=== PATIENT | male | born 1940 | race Caucasian/White ===

== ENCOUNTER 2018-12-28 14:13 | Inpatient (IN) | payer OTHER ==
--- NOTE | 2018-12-28 14:43 | PDOC ---
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 Per ME report, patient "choked" six times in the past month while eating. He is on a pureed diet with allowances for a mechanical soft diet. ME also notes he has had cognitive decline but that he is at his baseline orientation in that he cannot state the month or year, but otherwise knows his name and age and the place. Patient does not have any acute complaints. PCP: Dr. Patel Code: DNI, MOLST form specifies patient's refusal for a feeding team. NOT DNR Past History - Past Medical History Allergies/Adverse Reactions: Allergies Allergy/AdvReac Type Severity Reaction Status Date / Time No Known Allergies Allergy Verified 12/28/18 14:43 Home Medications: Ambulatory Orders Aripiprazole [Abilify] 2.5 mg PO BID 12/28/18 Ascorbic Acid [Vitamin C] 500 mg PO BID 12/28/18 Baclofen 10 mg PO TID 12/28/18 Clopidogrel Bisulfate [Plavix] 75 mg PO DAILY 12/28/18 Cyanocobalamin [Vitamin B12 -] 1,000 mcg PO DAILY 12/28/18 Docusate Sodium [Colace] 200 mg PO BID 12/28/18 Duloxetine HCl [Cymbalta -] 60 mg PO BID 12/28/18 Escitalopram Oxalate [Lexapro -] 20 mg PO DAILY 12/28/18 Gabapentin [Neurontin -] 800 mg PO Q8H 12/28/18 Gabapentin [Neurontin] 100 mg PO TID 12/28/18 Lisinopril [Zestril] 5 mg PO DAILY 12/28/18 Loratadine 10 mg PO DAILY 12/28/18 Methimazole [Tapazole -] 5 mg PO TID 12/28/18 Multivitamins [Tab-A-Vit -] 1 tab PO DAILY 12/28/18 Simvastatin [Zocor -] 20 mg PO HS 12/28/18 Travoprost [Travatan Z] 5 ml OU HS 12/28/18 Review of Systems - Review of Systems Able to Perform ROS?: No (not oriented) *Physical Exam - Physical Exam Comments: General: Awake, alert, and oriented x 2 (able to state name, age, place, but not month/year), in no acute distress Head: No signs of trauma Eyes: EOMI, sclera anicteric ENT: Dry mucus membranes Neck: Normal ROM, supple Lungs: Crackles appreciated at left lung base, Normal breath sounds Cardio: Regular rhythm, S1 and S2 present Abdomen: Soft, nontender. No guarding, no rebound, no masses Extremities: Normal range of motion, Distal pulses present SKIN: Warm, Dry, normal turgor Neurologic: Cranial nerves II through XII grossly intact. LUE weakness noted. Following commands. 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 Per ME report, patient "choked" six times in the past month while eating. He is on a pureed diet with allowances for a mechanical soft diet. ME also notes he has had cognitive decline but that he is at his baseline orientation in that he cannot state the month or year, but otherwise knows his name and age and the place. Patient does not have any acute complaints. PCP: Dr. Patel Code: DNI, MOLST form specifies patient's refusal for a feeding team. NOT DNR 12/28/18 15:00 Healthcare proxy: Jayce Lee, brother, can be reached at [phone] 12/28/18 15:37 Speech/swallow consult placed 12/28/18 15:37 CBC WBC 6.9 K/mm3 (4.0-10.0) 12/28/18 15:21 RBC 4.52 M/mm3 (4.00-5.60) 12/28/18 15:21 Hgb 13.8 GM/dL (11.7-16.9) 12/28/18 15:21 Hct 42.4 % (35.4-49) 12/28/18 15:21 MCV 93.9 fl (80-96) 12/28/18 15:21 MCH 30.4 pg (25.7-33.7) 12/28/18 15:21 MCHC 32.4 g/dl (32.0-35.9) 12/28/18 15:21 RDW 13.4 % (11.9-15.9) 12/28/18 15:21 Plt Count 173 K/MM3 (134-434) 12/28/18 15:21 MPV 8.3 fl (7.5-11.1) 12/28/18 15:21 Absolute Neuts (auto) 5.3 K/mm3 (1.5-8.0) 12/28/18 15:21 Neutrophils % 76.6 % (42.8-82.8) 12/28/18 15:21 Lymphocytes % 10.1 % (8-40) 12/28/18 15:21 Monocytes % 6.1 % (3.8-10.2) 12/28/18 15:21 Eosinophils % 6.7 % (0-4.5) H 12/28/18 15:21 Basophils % 0.5 % (0-2.0) 12/28/18 15:21 Nucleated RBC % 0 % (0-0) 12/28/18 15:21 No anemia or leukocytosis CMP Sodium 143 mmol/L (136-145) 12/28/18 15:21 Potassium 3.9 mmol/L (3.5-5.1) 12/28/18 15:21 Chloride 108 mmol/L (98-107) H 12/28/18 15:21 Carbon Dioxide 31 mmol/L (21-32) 12/28/18 15:21 Anion Gap 3 MMOL/L (8-16) L 12/28/18 15:21 BUN 19 mg/dL (7-18) H 12/28/18 15:21 Creatinine 0.9 mg/dL (0.55-1.3) 12/28/18 15:21 Est GFR (CKD-EPI)AfAm 93.82 12/28/18 15:21 Est GFR (CKD-EPI)NonAf 80.95 12/28/18 15:21 Random Glucose 107 mg/dL (74-106) H 12/28/18 15:21 Calcium 8.3 mg/dL (8.5-10.1) L 12/28/18 15:21 Total Bilirubin 0.5 mg/dL (0.2-1) 12/28/18 15:21 AST 15 U/L (15-37) 12/28/18 15:21 ALT 12 U/L (13-61) L 12/28/18 15:21 Alkaline Phosphatase 88 U/L (45-117) 12/28/18 15:21 Total Protein 5.6 g/dl (6.4-8.2) L 12/28/18 15:21 Albumin 3.0 g/dl (3.4-5.0) L 12/28/18 15:21 TSH 12.30 uIU/ml (0.358-3.74) H 12/28/18 15:21 Electrolytes unremarkable EKG: rate 84, QTc 505, NSR, nonspecific intraventricaular block CT head: "No CT evidence of acute intracranial pathology. Moderate periventricular and subcortical chronic microvascular ischemic changes are seen. Apparent incidental note is made of a 5 x 4.4 x 2 cm right frontal convexity arachnoid cyst. " CXR: "There are no prior studies for comparison. There is a weak inspiration with some minimal atelectatic change at the left base, unfolded aorta, normal brigid and normal heart. There is no sign of infiltrate or failure. The angles are sharp and the soft tissues are intact. Significant arthritic changes are not seen. Correlation recommended. " Discussed case with Jessica Newman, BUILDING TRADES TEACHER, who is aware of the patient. Recommended keeping him NPO until modified barium swallow. Order placed. 12/28/18 18:[address] Patel who accepted patient for med/surg observation under herself. 12/28/18 19:15 *DC/Admit/Observation/Transfer Diagnosis at time of Disposition: Dysphagia Qualifiers: Dysphagia type: unspecified Qualified Code(s): R13.10 - Dysphagia, unspecified - Discharge Dispostion Condition at time of disposition: Guarded Decision to Admit order: Yes - Referrals - Patient Instructions - Post Discharge Activity
[2018-12-28] MEDS ORDERED: SODIUM CHLORIDE 1,000 ML IV STA (15:21)
[2018-12-28 16:13] LABS: BASO % 0.5 % (0-2.0); EOS % 6.7 % (0-4.5); HEMATOCRIT 42.4 % (35.4-49); HEMOGLOBIN 13.8 GM/dL (11.7-16.9); LYMPH % 10.1 % (8-40); MCH 30.4 pg (25.7-33.7); MCHC 32.4 g/dl (32.0-35.9); MEAN CELL VOLUME 93.9 fl (80-96); MEAN PLT VOLUME 8.3 fl (7.5-11.1); MONO % 6.1 % (3.8-10.2); NEUT % 76.6 % (42.8-82.8); PLATELET COUNT 173 K/MM3 (134-434); RBC 4.52 M/mm3 (4.00-5.60); RDW 13.4 % (11.9-15.9); WHITE BLOOD COUNT 6.9 K/mm3 (4.0-10.0)
[2018-12-28 16:26] LABS: INR 1.12 (0.83-1.09); PROTHROMBIN TIME (PATIENT) 13.2 SEC (9.7-13.0)
[2018-12-28 16:29] LABS: ACTIVATED PTT 41.4 SECONDS (25.2-36.5)
[2018-12-28 16:48] LABS: BILIRUBIN,TOTAL 0.5 mg/dL (0.2-1); CALCIUM 8.3 mg/dL (8.5-10.1); CREATININE 0.9 mg/dL (0.55-1.3); POTASSIUM 3.9 mmol/L (3.5-5.1); TOT PROT 5.6 g/dl (6.4-8.2)
[2018-12-28] MEDS ORDERED: GABAPENTIN 100 MG CAPSULE (FP) PO SCH (23:30)
--- NOTE | 2018-12-28 23:52 | HP ---
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 Per [place] report, patient "choked" six times in the past month while eating. He is on a pureed diet with allowances for a mechanical soft diet. OK also notes he has had cognitive decline but that he is at his baseline orientation in that he cannot state the month or year, but otherwise knows his name and age and the place. 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: Yes: CVA, Dementia, Parkinson's Cardiovascular: Yes: HTN Psych: Yes: Depression - Advance Directives Advance Directives: Yes: Living Will - Smoking History Smoking history: Unknown if ever smoked - Alcohol/Substance Use Hx Alcohol Use: Yes History of Substance Use: reports: None - Social History Usual Living Arrangement: Yes: [facility] ADL: Support Services History of Recent Travel: No Home Medications - Allergies Allergies/Adverse Reactions: Allergies Allergy/AdvReac Type Severity Reaction Status Date / Time No Known Allergies Allergy Verified 12/28/18 14:43 - Home Medications Home Medications: Ambulatory Orders Aripiprazole [Abilify] 2.5 mg PO BID 12/28/18 Ascorbic Acid [Vitamin C] 500 mg PO BID 12/28/18 Baclofen 10 mg PO TID 12/28/18 Clopidogrel Bisulfate [Plavix] 75 mg PO DAILY 12/28/18 Cyanocobalamin [Vitamin B12 -] 1,000 mcg PO DAILY 12/28/18 Docusate Sodium [Colace] 200 mg PO BID 12/28/18 Duloxetine HCl [Cymbalta -] 60 mg PO BID 12/28/18 Escitalopram Oxalate [Lexapro -] 20 mg PO DAILY 12/28/18 Gabapentin [Neurontin -] 800 mg PO Q8H 12/28/18 Gabapentin [Neurontin] 100 mg PO TID 12/28/18 Lisinopril [Zestril] 5 mg PO DAILY 12/28/18 Loratadine 10 mg PO DAILY 12/28/18 Methimazole [Tapazole -] 5 mg PO TID 12/28/18 Multivitamins [Tab-A-Vit -] 1 tab PO DAILY 12/28/18 Simvastatin [Zocor -] 20 mg PO HS 12/28/18 Travoprost [Travatan Z] 5 ml OU HS 12/28/18 Review of Systems Unable to obtain ROS, reason: Dementia Findings/Remarks: hx obtained from nursing staff at [facility] - Review of Systems Constitutional: reports: No Symptoms Eyes: reports: No Symptoms HENT: reports: No Symptoms Neck: reports: No Symptoms Cardiovascular: reports: No Symptoms Respiratory: reports: No Symptoms Gastrointestinal: reports: No Symptoms Genitourinary: reports: No Symptoms Breasts: reports: No Symptoms Reported Musculoskeletal: reports: No Symptoms Integumentary: reports: No Symptoms Neurological: reports: No Symptoms Hematology/Lymphatic: reports: No Symptoms Psychiatric: reports: Depression Physical Examination Vital Signs: Vital Signs Temperature 99.0 F 12/28/18 19:58 Pulse Rate 102 H 12/28/18 19:58 Respiratory Rate 18 12/28/18 19:58 Blood Pressure 121/70 12/28/18 19:58 O2 Sat by Pulse Oximetry (%) 97 12/28/18 19:58 Labs: CBC, BMP 12/28/18 15:21 12/28/18 15:21 Problem List - Problems (1) Dysphagia Code(s): R13.10 - DYSPHAGIA, UNSPECIFIED Qualifiers: Dysphagia type: unspecified Qualified Code(s): R13.10 - Dysphagia, unspecified (2) Dementia Code(s): F03.90 - UNSPECIFIED DEMENTIA WITHOUT BEHAVIORAL DISTURBANCE (3) HTN (hypertension) Code(s): I10 - ESSENTIAL (PRIMARY) HYPERTENSION (4) CVA, old, alterations of sensations Code(s): I69.398 - OTHER SEQUELAE OF CEREBRAL INFARCTION; R20.9 - UNSPECIFIED DISTURBANCES OF SKIN SENSATION
[2018-12-29] MEDS ORDERED: GABAPENTIN 400 MG CAPSULE (FP) PO SCH (00:22)
[2018-12-29] MEDS ORDERED: DEXTROSE 5%-0.45% SALINE 1,000 ML IV SCH (00:30)
[2018-12-29] MEDS ORDERED: ACETAMINOPHEN 1000 MG/100 ML VIAL (NON FORMULARY) IVPB ONE (02:00)
[2018-12-29] MEDS ORDERED: SODIUM CHLORIDE 1,000 ML IV STA ×2 (05:49→06:55)
[2018-12-29] MEDS ORDERED: BACLOFEN 10 MG TABLET (FP) PO SCH (06:00)
[2018-12-29] MEDS ORDERED: METHIMAZOLE 5 MG TABLET (FP) PO SCH (06:00)
[2018-12-29] MEDS ORDERED: PIPERACILLIN/TAZOB 4.5 GM 4.5 GM in DEXTROSE 5%-WATER 100 ML IVPB ONE (06:04)
--- NOTE | 2018-12-29 06:11 | PN ---
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 (short form) - Note 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: LOSS PREVENTION LEAD TEAM NOTE Over the course of the evening pt was noted to be febrile to 101.8F and Blood cultures were drawn at that time and pt subseqeuently noted to be hypotensive to ~ 78/50mmhg though on exam was awake and conversive though disoriented to place & time. I recommended to nurses to stop D5, 1/2NS IVF being given for maintenance hydration and placed order for 1 L bolus of normal saline to be administered over 30mins. I further placed order for IV 1gm Vancomycin & 4.5gm Zosyn to cover for any potential nosocomial infection. Pt given 1gm IV tylenol for antipyretic effect as pt is NPO. AM dose of lisinopril held give hypotension. Pt will need close monitoring of vitals after bolus to see if hemodynamics improve or if additional measures will be needed.
[2018-12-29] MEDS ORDERED: VANCOMYCIN 1 GRAM (PRE-DOCKED) 1,000 MG/250 ML BAG IVPB ONE (06:30)
[2018-12-29] MEDS ORDERED: DEXTROSE 5%-WATER 100 ML IVPB ONE ×2 (06:39→15:57)
[2018-12-29] MEDS ORDERED: PIPERACILLIN/TAZOBACTAM 4.5 GM VIAL IVPB ONE ×2 (06:39→15:57)
[2018-12-29] MEDS ORDERED: DEXTROSE 50%-WATER - 25 GM/50 ML VIAL ONE (06:41)
[2018-12-29 07:59] LABS: CREATININE 0.7 mg/dL (0.55-1.3); HEMATOCRIT 34.8 % (35.4-49); HEMOGLOBIN 11.6 GM/dL (11.7-16.9); MAGNESIUM 2.4 mg/dL (1.8-2.4); MCHC 33.3 g/dl (32.0-35.9); MEAN CELL VOLUME 93.1 fl (80-96); MEAN PLT VOLUME 8.4 fl (7.5-11.1); POTASSIUM 3.5 mmol/L (3.5-5.1); RBC 3.74 M/mm3 (4.00-5.60); WHITE BLOOD COUNT 12.1 K/mm3 (4.0-10.0)
[2018-12-29] MEDS ORDERED: SODIUM CHLORIDE 1,000 ML IV ONE (09:15)
[2018-12-29] MEDS ORDERED: LISINOPRIL 5 MG TABLET (FP) PO SCH (10:00)
[2018-12-29] MEDS ORDERED: LORATADINE 10 MG TABLET PO SCH (10:00)
[2018-12-29] MEDS ORDERED: DULoxetine HCL 30 MG CAPSULE.DR PO SCH (10:00)
[2018-12-29] MEDS ORDERED: MULTIVITAMINS (DAILY MVI) TABLET (FP) PO SCH (10:00)
[2018-12-29] MEDS ORDERED: ASCORBIC ACID 500 MG TABLET (FP) PO SCH (10:00)
[2018-12-29] MEDS ORDERED: ARIPiprazole 5 MG TABLET (FP) PO SCH (10:00)
[2018-12-29] MEDS ORDERED: DOCUSATE SODIUM 100 MG CAPSULE (FP) PO SCH (10:00)
[2018-12-29] MEDS ORDERED: CYANOCOBALAMIN 1,000 MCG TABLET (FP) PO SCH (10:00)
[2018-12-29] MEDS ORDERED: CLOPIDOGREL BISULFATE 75 MG TABLET (FP) PO SCH (10:00)
[2018-12-29] MEDS ORDERED: ESCITALOPRAM OXALATE 20 MG TABLET (FP) PO SCH (10:00)
--- NOTE | 2018-12-29 10:04 | CONSULT ---
Admitting History and Physical - Primary Care Physician PCP: Pamela Patel I - Admission History of Present Illness: 77yo Brother with PMH of HTN, HLD, CVA twenty years ago with residual left- sided weakness, peripheral vascular disease, metabolic encephalopathy presenting from [facility] for evaluation of aspiration. Per verbal report from Speech Pathology at [facility], pt with h/o coughing/ choking episodes. He was downgraded from regular to mechanical soft due to continued difficulty. He was then further downgraded to Puree, allowing some soft mechanical foods. He was not placed on only Puree as he refused and would not accept it. He has lost weight. He has declined any tube feeding per his directives. Yesterday, he was eating a moist mech soft hamburger on a soft bun, and then chocolate pudding. The SW was feeding him the Cristobal pudding, when he started to vomit up food. His O2 sats dropped and his face turned red and he required suctioning. Pt is known to me from MBS performed in 2016, with pharyngeal stasis, no aspiration, penetration, rapid esophageal emptying. Reg diet/thin liquids was rec at that time. He was advised to chew well, swallow hard twice, with alternating solids with liquids. Pt received Dysphagia tx at that time. 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: CVA, Dementia, Parkinson's Cardiovascular: Yes: HTN Psych: Yes: Depression - Advance Directives Advance Directives: Yes: Living Will - Smoking History Smoking history: Unknown if ever smoked - Alcohol/Substance Use Hx Alcohol Use: Yes History of Substance Use: reports: None - Social History ADL: Support Services History of Recent Travel: No History - Admission Reason For Visit: DYSPHAGIA - Diagnostics X-ray: Report Reviewed CT Scan: Report Reviewed - General Mental Status: Awake and Alert, Able to Follow Commands, Forgetful Attention: Intact Ability to Follow Directions: Excellent - Hearing Hearing: Functional Hearing: Impaired (hearing seems depressed) Hearing Aide: No Speech Evaluation - Communication Primary Language: [id number] Communication: Yes: Within Normal Limits Oral Expression Ability: Yes: No Impairment - Speech Production Able to Make Needs Known: Yes: WNL Intelligibility: Yes: WNL - Speech Characteristics Voice Loudness: Normal Voice Pitch: Yes: Normal Voice Phonatory-based Quality: Yes: Normal Speech Pattern: Normal Nasal Resonance: Normal Articulation: Yes: Precise - Language/Auditory Comprehension Follows: Yes: 1 Stage Simple Commands Observation: Able to respond to yes/no queries: Yes, Yes/No Confusion: No, Comprehends Conversational Speech: Yes - Language/Verbal Expression Able to Respond to Simple Queries: Yes: WNL Able to Communicate Wants and Needs: Yes: WNL Functional Communication Status: Yes: WNL - Swallow Evaluation/Bedside Assessment Current Nutritional Intake: NPO Oral Secretions: Yes: WFL Dentition: Yes: Adequate Facial Symmetry at Rest: Symmetrical Facial Symmetry on Retraction: Symmetrical Against Resistance Opening: Normal Against Resistance Closing: Normal Pucker Lips: Normal Smile: Normal Lingual Movement: Normal, Symmetric Lingual Speed of Movement: Normal Lingual Movement Strgth Against Opposition: Normal Lingual Movement Characteristics: Normal Velopharyngeal Movement: Normal Laryngeal Movement: Reduced Excursion Labial Seal: WFL Coughing/Throat Clear: No (sips of thin water given with good tolerance) Recommendations - Speech Evaluation, Impression/Plan Impression: Pt with h/o Dysphagia with pharyngeal stasis, 2016, tolerayted reg diet/thin liquids at that time with compensatory strategies of effortful, repeat swallow, and liquid washdown techniques. Recent choking events at [facility], with vomiting noted after burger and pudding yesterday. r/o pharyngeal stasis/ esophagia dysphagia. - Disposition Discharge to: [facility] - Dysphagia Impressions/Plan Swallowing Skills: Impaired Dysphagia Impressions: Suspect Aspiration *Silent aspiration: cannot be R/O at bedside Recommendations: MBS w Esophagus - Recommendations Medication Administration: Crushed with applesauce
[2018-12-29] MEDS ORDERED: SODIUM CHLORIDE 0.9% 500 ML INFUS.BAG IV ONE (10:40)
--- NOTE | 2018-12-29 11:00 | PN ---
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 (short form) - Note 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: 77 y/o male found sitting in bed. IV bolus finishing due to hypotension. Pt states that he has not had any food since he is here. Pt had a fever last night. Recognizes BULK SAUSAGE CASING TIER OFF and denies pain and discomfort. Vital Signs Period Temp Pulse Resp BP Sys/Ogden Pulse Ox Last 24 Hr 97.7 F-101.8 F 61-110 18-20 74-143/45-81 94-100 CBC, BMP 12/29/18 06:37 12/29/18 06:37 HEENT- NL Neck- Supple Lungs- CTAB Heart- S1/S2 Abd- soft, nt Ext- NO LE edema Active Medications Aripiprazole (Abilify) 2.5 mg PO BID RUFINO Ascorbic Acid (Vitamin C -) 500 mg PO BID RUFINO Baclofen (Lioresal -) 10 mg PO TID [facility] Last Admin: 12/29/18 07:11 Dose: Not Given Clopidogrel Bisulfate (Plavix -) 75 mg PO DAILY RUFINO Cyanocobalamin (Vitamin B12 -) 1,000 mcg PO DAILY RUFINO Docusate Sodium (Colace -) 200 mg PO BID RUFINO Duloxetine HCl (Cymbalta -) 60 mg PO BID RUFINO Escitalopram Oxalate (Lexapro -) 20 mg PO DAILY RUFINO Gabapentin (Neurontin -) 400 mg PO TID [facility] Last Admin: 12/29/18 07:11 Dose: Not Given Latanoprost (Xalatan 0.005% Eye Drops -) 1 drop OU HS URFINO Loratadine (Claritin -) 10 mg PO DAILY RUFINO Multivitamins/Minerals/Vitamin C (Tab-A-Vit -) 1 tab PO DAILY RUFINO #Dysphagia NPO MBS today- when BP more than 100/60 Chext xray reviewed and neg for aspiration #Hypotension IV boluses NS BP trending up- 96/57 500 cc NS bolus now Monitor BP BP 74/40 after last bolus Transfer to ICU #CVA Lt sided weakness Problem List - Problems (1) Dysphagia Code(s): R13.10 - DYSPHAGIA, UNSPECIFIED Qualifiers: Dysphagia type: unspecified Qualified Code(s): R13.10 - Dysphagia, unspecified (2) Dementia Code(s): F03.90 - UNSPECIFIED DEMENTIA WITHOUT BEHAVIORAL DISTURBANCE (3) HTN (hypertension) Code(s): I10 - ESSENTIAL (PRIMARY) HYPERTENSION (4) CVA, old, alterations of sensations Code(s): I69.398 - OTHER SEQUELAE OF CEREBRAL INFARCTION; R20.9 - UNSPECIFIED DISTURBANCES OF SKIN SENSATION
[2018-12-29 11:38] LABS: PLATELET COUNT 168 K/MM3 (134-434)
--- NOTE | 2018-12-29 12:37 | EKG ---
Test Reason : Blood Pressure : / mmHG Vent. Rate : 083 BPM Atrial Rate : 083 BPM P-R Int : 196 ms QRS Dur : 126 ms QT Int : 434 ms P-R-T Axes : 046 -13 065 degrees QTc Int : 509 ms NORMAL SINUS RHYTHM NON-SPECIFIC INTRA-VENTRICULAR CONDUCTION BLOCK CANNOT RULE OUT SEPTAL INFARCT , AGE UNDETERMINED ABNORMAL ECG NO PREVIOUS ECGS AVAILABLE Confirmed by ERUM KUMAR MD ([id number]) on 12/29/2018 12:36:26 PM Referred By: Confirmed By:ERUM KUMAR MD
--- NOTE | 2018-12-29 13:41 | PN ---
Teaching Attending Note Name of Resident: Terrence Le ATTENDING PHYSICIAN STATEMENT I saw and evaluated the patient. I reviewed the resident's note and discussed the case with the resident. I agree with the resident's findings and plan as documented. SUBJECTIVE: Patient seen and examined in the ICU. In brief, 77 M, dementia, HTN, HLD, CVA about 20 years ago with a residual left-sided weakness, peripheral vascular disease, and metabolic encephalopathy. Admitted via the ER due to suspected aspiration penumonitis. Initially admitted to the medical floor and subsequently developed refractory hypotension despite 3 L IVF. Patient is awake and alert, but confused. Right IJ CVP inserted under direct US due to need for pressors. Intake & Output 12/26/18 12/27/18 12/28/18 12/29/18 23:59 23:59 23:59 23:59 Intake Total 2100 Balance 2100 Weight 178 lb 14.4 oz Last Vital Signs Temp Pulse Resp BP Pulse Ox 97.8 F 76 20 76/43 L 97 12/29/18 12:30 12/29/18 12:30 12/29/18 12:30 12/29/18 12:30 12/28/18 19:58 Active Medications Chlorhexidine Gluconate (Hibiclens For Decolonization -) 1 applic TP HS RUFINO Norepinephrine Bitartrate 4, (000 mcg/ Dextrose) 500 mls @ 37.5 mls/hr IV TITR RUFINO; Protocol Mupirocin (Bactroban Ointment (For Decolonization) -) 1 applic NS BID RUFINO Stop: 01/03/19 21:59 General: Awake, alert, mildly confused Head: No signs of trauma Eyes:sclera anicteric ENT: Dry mucus membranes Neck: Normal ROM, supple Lungs: Bibasilar rhonchi, Right > Left Cardio: Regular rhythm, S1 and S2 present Abdomen: Soft, nontender. No guarding, no rebound, no masses Extremities: Normal range of motion, Distal pulses present SKIN: Warm, Dry, poor turgor Neurologic: Non-focal Laboratory Results - last 24 hr 12/28/18 12/28/18 12/28/18 15:21 15:21 15:21 WBC 6.9 RBC 4.52 Hgb 13.8 Hct 42.4 MCV 93.9 MCH 30.4 MCHC 32.4 RDW 13.4 Plt Count 173 MPV 8.3 Absolute Neuts (auto) 5.3 Neutrophils % 76.6 Lymphocytes % 10.1 Monocytes % 6.1 Eosinophils % 6.7 H Basophils % 0.5 Nucleated RBC % 0 PT with INR 13.20 H INR 1.12 H PTT (Actin FS) 41.4 H Sodium 143 Potassium 3.9 Chloride 108 H Carbon Dioxide 31 Anion Gap 3 L BUN 19 H Creatinine 0.9 Est GFR (CKD-EPI)AfAm 93.82 Est GFR (CKD-EPI)NonAf 80.95 Random Glucose 107 H Lactic Acid Calcium 8.3 L Magnesium Total Bilirubin 0.5 AST 15 ALT 12 L Alkaline Phosphatase 88 Total Protein 5.6 L Albumin 3.0 L TSH 12.30 H 12/29/18 12/29/18 12/29/18 06:37 06:37 11:20 WBC 12.1 H RBC 3.74 L Hgb 11.6 L Hct 34.8 L D MCV 93.1 MCH 31.0 MCHC 33.3 RDW 13.0 Plt Count 168 MPV 8.4 Absolute Neuts (auto) Neutrophils % Lymphocytes % Monocytes % Eosinophils % Basophils % Nucleated RBC % PT with INR INR PTT (Actin FS) Sodium 143 Potassium 3.5 Chloride 110 H Carbon Dioxide 28 Anion Gap 6 L BUN 15 Creatinine 0.7 Est GFR (CKD-EPI)AfAm 104.03 Est GFR (CKD-EPI)NonAf 89.76 Random Glucose 90 Lactic Acid 1.0 Calcium 8.0 L Magnesium 2.4 Total Bilirubin AST ALT Alkaline Phosphatase Total Protein Albumin TSH Problem List - Problems (1) Dysphagia Code(s): R13.10 - DYSPHAGIA, UNSPECIFIED Qualifiers: Dysphagia type: unspecified Qualified Code(s): R13.10 - Dysphagia, unspecified (2) Dementia Code(s): F03.90 - UNSPECIFIED DEMENTIA WITHOUT BEHAVIORAL DISTURBANCE (3) HTN (hypertension) Code(s): I10 - ESSENTIAL (PRIMARY) HYPERTENSION (4) CVA, old, alterations of sensations Code(s): I69.398 - OTHER SEQUELAE OF CEREBRAL INFARCTION; R20.9 - UNSPECIFIED DISTURBANCES OF SKIN SENSATION IMP: Sepsis likely due to Aspiration Pneumonitis Progressing to Septic Shock TLC was inserted NE to maintain MAP > 65 Follow CVP to guide fluid resuscitation Strict I & O Follow cultures Aspiration precautions May need NGT O2 as needed to maintain saturation Requires ICU monitoring for shock Dr Anderson Critical care time spent in reviewing chart, evaluating patient and formulating plan - 36 minutes.
[2018-12-29] MEDS ORDERED: NOREPINEPHRINE BITARTRATE 4,000 MCG in DEXTROSE 5%-WATER - 496 ML IV SCH (13:45)
--- NOTE | 2018-12-29 14:16 | CON.ID ---
Consult Consult Specialty:: infectious disease Referred by:: dr henderson Reason for Consultation:: septic shock - History of Present Illness Chief Complaint: hypotension History of Present Illness: 77 yo man residing at [facility] with dementia has [facility] change and speech evaluation - he was admitted for evaluation for aspiration yesterday overnight he developed fever to 101.8 and hypotension he was cultured and received vanco/zosyn and IVF BP remained low and he was transferred to ICU no further fevers otherwise feels well alert, not oriented to place but knows he is turning 78 tomorrow! 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 History of Recent Travel: No Home Medications - Allergies Allergies/Adverse Reactions: Allergies Allergy/AdvReac Type Severity Reaction Status Date / Time No Known Allergies Allergy Verified 12/28/18 14:43 - Home Medications Home Medications: Ambulatory Orders Aripiprazole [Abilify] 2.5 mg PO BID 12/28/18 Ascorbic Acid [Vitamin C] 500 mg PO BID 12/28/18 Baclofen 10 mg PO TID 12/28/18 Clopidogrel Bisulfate [Plavix] 75 mg PO DAILY 12/28/18 Cyanocobalamin [Vitamin B12 -] 1,000 mcg PO DAILY 12/28/18 Docusate Sodium [Colace] 200 mg PO BID 12/28/18 Duloxetine HCl [Cymbalta -] 60 mg PO BID 12/28/18 Escitalopram Oxalate [Lexapro -] 20 mg PO DAILY 12/28/18 Gabapentin [Neurontin -] 800 mg PO Q8H 12/28/18 Gabapentin [Neurontin] 100 mg PO TID 12/28/18 Lisinopril [Zestril] 5 mg PO DAILY 12/28/18 Loratadine 10 mg PO DAILY 12/28/18 Methimazole [Tapazole -] 5 mg PO TID 12/28/18 Multivitamins [Tab-A-Vit -] 1 tab PO DAILY 12/28/18 Simvastatin [Zocor -] 20 mg PO HS 12/28/18 Travoprost [Travatan Z] 5 ml OU HS 12/28/18 Family Disease History - Family Disease History Family History: Unable to Obtain Review of Systems - Review of Systems Constitutional: reports: No Symptoms Eyes: reports: No Symptoms Cardiovascular: denies: Chest Pain Gastrointestinal: denies: Abdominal Pain Genitourinary: denies: Dysuria, Flank Pain Physical Exam Vital Signs: Vital Signs Temperature 97.8 F 12/29/18 12:30 Pulse Rate 76 12/29/18 12:30 Respiratory Rate 20 12/29/18 12:30 Blood Pressure 76/43 L 12/29/18 12:30 O2 Sat by Pulse Oximetry (%) 97 12/28/18 19:58 Constitutional: Yes: Well Nourished, No Distress, Calm Eyes: Yes: Conjunctiva Clear HENT: Yes: Atraumatic, Normocephalic Neck: Yes: Supple, Trachea Midline Cardiovascular: Yes: Regular Rate and Rhythm Respiratory: Yes: Regular, CTA Bilaterally Gastrointestinal: Yes: Normal Bowel Sounds, Soft ...Rectal Exam: Yes: Deferred Musculoskeletal: Yes: WNL Extremities: Yes: WNL Edema: No Neurological: Yes: Alert Labs: CBC, BMP 12/29/18 06:37 12/29/18 06:37 Imaging - Results Chest X-ray: Report Reviewed, Image Reviewed (RLL infiltrate (new)) Problem List - Problems (1) Sepsis Code(s): A41.9 - SEPSIS, UNSPECIFIED ORGANISM (2) Aspiration pneumonia Code(s): J69.0 - PNEUMONITIS DUE TO INHALATION OF FOOD AND VOMIT (3) Dementia Code(s): F03.90 - UNSPECIFIED DEMENTIA WITHOUT BEHAVIORAL DISTURBANCE (4) Dysphagia Code(s): R13.10 - DYSPHAGIA, UNSPECIFIED Qualifiers: Dysphagia type: unspecified Qualified Code(s): R13.10 - Dysphagia, unspecified Assessment/Plan hypotension that has not responded to IVF probable sepsis continue zosyn for possible aspiration cultures pending check UA and urine culture as well
[2018-12-29] MEDS ORDERED: PIPERACILLIN/TAZOB 4.5 GM 4.5 GM in DEXTROSE 5%-WATER 100 ML IVPB SCH (14:22)
[2018-12-29] MEDS ORDERED: SODIUM CHLORIDE 1,000 ML IV SCH (16:00)
[2018-12-29] MEDS: PIPERACILLIN/TAZOB 4.5 GM 4.5 GM in DEXTROSE 5%-WATER 100 ML IVPB SCH (16:00)
--- NOTE | 2018-12-29 16:29 | PROC ---
Central Line Insertion Indication: Vasopressor Risks and Benefits Explained: Yes Consent on Chart: No (No capacity, done emergently ) Central Line: Triple Lumen Catheter Anesthesia: 1% Lidocaine Sterile Technique: Yes Ultrasound Guided Assistance: Yes Position: Right Internal Jugular Post Insertion: Yes: Chest X-Ray Ordered Sterile Dressing Applied: Yes
--- NOTE | 2018-12-29 16:30 | CONSULT ---
Consultation: REQUESTING PROVIDER: CONSULT REQUEST: We have been asked to medically evaluate this patient for ( specify). HISTORY OF PRESENT ILLNESS: 77 yo male pmh dementia, HTN, HLD, CVA with left sided residual weakness, PVD and metabolic encephalopathy BIBA from [facility] and admitted to the floor for likely aspiration PNA. ICU consulted for refractory hypertension in the 70s after 3-4L NS. BP noted to be low since 7AM. Pt is AOX2, NAD, no current complaints of pain, CP, SOB, DRAPER, F/C/N/V, trauma. CT head: "No CT evidence of acute intracranial pathology. Moderate periventricular and subcortical chronic microvascular ischemic changes are seen. Apparent incidental note is made of a 5 x 4.4 x 2 cm right frontal convexity arachnoid cyst. " CXR: "There are no prior studies for comparison. There is a weak inspiration with some minimal atelectatic change at the left base, unfolded aorta, normal brigid and normal heart. There is no sign of infiltrate or failure. The angles are sharp and the soft tissues are intact. Significant arthritic changes are not seen. Correlation recommended. " REVIEW OF SYSTEMS: limited due to dementia PHYSICAL EXAMINATION Vital Signs - 24 hr 12/28/18 12/28/18 12/28/18 16:40 19:16 19:58 Temperature 98.9 F 99.0 F Pulse Rate 83 109 H Pulse Rate [ 102 H Left Radial] Respiratory 20 18 Rate Blood Pressure 143/81 Blood Pressure 121/70 [Left Arm] O2 Sat by Pulse 100 97 Oximetry (%) 12/29/18 12/29/18 12/29/18 01:30 07:00 07:45 Temperature 101.8 F H 98.9 F 97.7 F Pulse Rate 110 H 73 67 Pulse Rate [ Left Radial] Respiratory 20 20 18 Rate Blood Pressure 93/69 79/48 L 87/48 L Blood Pressure [Left Arm] O2 Sat by Pulse Oximetry (%) 12/29/18 12/29/18 12/29/18 08:20 09:10 09:56 Temperature 97.7 F 97.7 F 97.7 F Pulse Rate 61 66 74 Pulse Rate [ Left Radial] Respiratory 20 20 20 Rate Blood Pressure 74/45 L 88/53 L 96/55 L Blood Pressure [Left Arm] O2 Sat by Pulse Oximetry (%) 0612/29/18 12/29/18 10:00 11:50 12:30 Temperature 97.9 F 97.8 F Pulse Rate 75 76 Pulse Rate [ Left Radial] Respiratory 20 20 Rate Blood Pressure 74/41 L 76/43 L Blood Pressure [Left Arm] O2 Sat by Pulse 99 Oximetry (%) GENERAL: Awake, alert, AOX2, in no acute distress. HEAD: Normal with no signs of trauma. EYES: Pupils equal, round and reactive to light, extraocular movements intact, sclera anicteric, conjunctiva clear. No lid lag. EARS, NOSE, THROAT: Ears normal, nares patent, oropharynx clear without exudates. Moist mucous membranes. NECK: Normal range of motion, supple without lymphadenopathy, JVD, or masses. LUNGS: Breath sounds equal, rales bilateral lung bases. No accessory muscle use. HEART: Regular rate and rhythm, normal S1 and S2 without murmur, rub or gallop. ABDOMEN: Soft, nontender, not distended, normoactive bowel sounds, no guarding, no rebound, no masses. No hepatomegaly or splenomegaly. MUSCULOSKELETAL:Left upper ext 2/5 strength, left lower ext 1/5 strength. 5/5 strength R upper and lower ext. No bony deformities or tenderness. No CVA tenderness. UPPER EXTREMITIES: 2+ pulses, warm, well-perfused. No cyanosis. No clubbing. Cap refill <2 seconds. No peripheral edema. LOWER EXTREMITIES: 2+ pulses, warm, well-perfused. No calf tenderness. No peripheral edema. NEUROLOGICAL: Cranial nerves II-XII intact. Normal speech. PSYCHIATRIC: Cooperative. Good eye contact. Appropriate mood and affect. SKIN: Warm, dry, normal turgor, no rashes or lesions noted. Laboratory Results - last 24 hr 12/28/18 12/29/18 12/29/18 15:21 06:37 06:37 WBC 12.1 H RBC 3.74 L Hgb 11.6 L Hct 34.8 L D MCV 93.1 MCH 31.0 MCHC 33.3 RDW 13.0 Plt Count 168 MPV 8.4 Sodium 143 143 Potassium 3.9 3.5 Chloride 108 H 110 H Carbon Dioxide 31 28 Anion Gap 3 L 6 L BUN 19 H 15 Creatinine 0.9 0.7 Est GFR (CKD-EPI)AfAm 93.82 104.03 Est GFR (CKD-EPI)NonAf 80.95 89.76 Random Glucose 107 H 90 Lactic Acid Calcium 8.3 L 8.0 L Magnesium 2.4 Total Bilirubin 0.5 AST 15 ALT 12 L Alkaline Phosphatase 88 Total Protein 5.6 L Albumin 3.0 L TSH 12.30 H 12/29/18 12/29/18 11:20 15:10 WBC RBC Hgb Hct MCV MCH MCHC RDW Plt Count MPV Sodium Potassium Chloride Carbon Dioxide Anion Gap BUN Creatinine Est GFR (CKD-EPI)AfAm Est GFR (CKD-EPI)NonAf Random Glucose Lactic Acid 1.0 0.7 Calcium Magnesium Total Bilirubin AST ALT Alkaline Phosphatase Total Protein Albumin TSH Active Medications Generic Name Dose Route Start Last Admin Trade Name Freq PRN Reason Stop Dose Admin Chlorhexidine Gluconate 1 applic 12/29/18 22:00 Hibiclens For Decolonization - TP HS RUFINO Norepinephrine Bitartrate 4, 500 mls @ 37.5 mls/hr 12/29/18 13:45 000 mcg/ Dextrose IV TITR RUFINO Protocol 5 MCG/MIN Piperacillin Sod/Tazobactam 100 mls @ 200 mls/hr 12/29/18 15:30 12/29/18 16: 00 Sod 4.5 gm/ Dextrose IVPB 200 mls/hr Q8H-IV RUFINO Administration Protocol Sodium Chloride 1,000 mls @ 75 mls/hr 12/29/18 16:00 12/29/18 16:09 Normal Saline - IV 75 mls/hr ASDIR RUFINO Administration Mupirocin 1 applic 12/29/18 22:00 Bactroban Ointment (For Decolonization) - NS 01/03/19 21:59 BID RUFINO ASSESSMENT/PLAN: 77 yo male pmh dementia, HTN, HLD, CVA with left sided residual weakness, PVD and metabolic encephalopathy BIBA from [facility] and admitted to the floor for likely aspiration PNA. ICU consulted for refractory hypertension in the 70s after 3-4L NS. BP noted to be low since 7AM. Pt is AOX2, NAD, no current complaints of pain, CP, SOB, DRAPER, F/C/N/V, trauma. Pt likely septic/ septic shock from possible PNA. WBC trending up, will repeat Right IJ central line placed, confirmed on CXR, see procedure note Levo ordered, maintain MAP > 65 As per ID: probable sepsis continue zosyn for possible aspiration F/C UA/cultures F/U repeat blood work Follow CVP to guide fluid resuscitation Strict I & O Aspiration precautions O2 as needed to maintain saturation above 90% Requires ICU monitoring for shock Dispo: We will continue to follow the patient. Thank you for this consultative opportunity. Visit type - Emergency Visit Emergency Visit: Yes ED Registration Date: 12/28/18 Care time: The patient presented to the Emergency Department on the above date and was hospitalized for further evaluation of their emergent condition. - New Patient This patient is new to me today: Yes Date on this admission: 12/29/18 - Critical Care Critical Care patient: Yes Total Critical Care Time (in minutes): 45 Critical Care Statement: The care of this patient involved high complexity decision making to prevent further life threatening deterioration of the patient 's condition and/or to evaluate & treat vital organ system(s) failure or risk of failure.
--- NOTE | 2018-12-29 18:01 | HOSP ---
Physical Examination Vital Signs: Vital Signs Temperature 97.8 F 12/29/18 12:30 Pulse Rate 76 12/29/18 12:30 Respiratory Rate 20 12/29/18 12:30 Blood Pressure 76/43 L 12/29/18 12:30 O2 Sat by Pulse Oximetry (%) 99 12/29/18 10:00 Labs: CBC, BMP 12/29/18 06:37 12/29/18 06:37 Hospitalist Encounter Assessment: Spoke with Grzegorz Pena, listed as a friend of the patient who called in asking about pt. Mr. Pena stated that pt should be DNR/DNI. However, stated that patient's brother, Jayce Lee is the health care proxy. Unfortunately , Mr. Pena did not have a number for Jayce, but suggested calling [facility]. Called placed to [facility]; spoke to Bella. [facility] did not have pt's brother' s name. Will have to confirm DNR/DNI with health care proxy or next of kin as soon as is possible. Visit type - Emergency Visit Emergency Visit: No - New Patient This patient is new to me today: No - Critical Care Critical Care patient: Yes Total Critical Care Time (in minutes): 35 Critical Care Statement: The care of this patient involved high complexity decision making to prevent further life threatening deterioration of the patient 's condition and/or to evaluate & treat vital organ system(s) failure or risk of failure.
[2018-12-29] MEDS ORDERED: CHLORHEXIDINE GLUCONATE 4% CLEANSER FOR DECOLONIZATION TP SCH (22:00)
[2018-12-29] MEDS ORDERED: LATANOPROST 0.005% OPHTH SOLN 2.5ML BOTTLE OU SCH (22:00)
[2018-12-29] MEDS: MUPIROCIN 2% TOPICAL OINTMENT FOR DECOLONIZATION NS SCH (22:28)
[2018-12-30] MEDS ORDERED: DEXTROSE 5%-WATER 100 ML IVPB ONE ×2 (01:10→17:14)
[2018-12-30] MEDS ORDERED: PIPERACILLIN/TAZOBACTAM 4.5 GM VIAL IVPB ONE ×3 (01:10→17:13)
[2018-12-30] MEDS: PIPERACILLIN/TAZOB 4.5 GM 4.5 GM in DEXTROSE 5%-WATER 100 ML IVPB SCH ×3 (01:11→18:27)
[2018-12-30 06:39] LABS: HEMATOCRIT 35.3 % (35.4-49); MCH 31.1 pg (25.7-33.7); MCHC 33.9 g/dl (32.0-35.9); MEAN CELL VOLUME 91.6 fl (80-96); MEAN PLT VOLUME 8.5 fl (7.5-11.1); RBC 3.85 M/mm3 (4.00-5.60); RDW 13.1 % (11.9-15.9); WHITE BLOOD COUNT 9.3 K/mm3 (4.0-10.0)
[2018-12-30 07:02] LABS: ALBUMIN 2.4 g/dl (3.4-5.0); ALK PHOS 73 U/L (45-117); ANION GAP 8 MMOL/L (8-16); BILIRUBIN,TOTAL 1.1 mg/dL (0.2-1); BLOOD UREA NITROGEN 11.4 mg/dL (7-18); CALCIUM 7.8 mg/dL (8.5-10.1); CHLORIDE 108 mmol/L (98-107); CO2 25 mmol/L (21-32); CREATININE 0.6 mg/dL (0.55-1.3); GLUCOSE,RANDOM 68 mg/dL (74-106); POTASSIUM 3.6 mmol/L (3.5-5.1); SGOT/AST 18 U/L (15-37); SGPT/ALT 11 U/L (13-61); SODIUM 141 mmol/L (136-145); TOT PROT 4.7 g/dl (6.4-8.2)
[2018-12-30] MEDS ORDERED: VANCOMYCIN 1,250 MG in DEXTROSE 5%-WATER - 250 ML IVPB SCH ×2 (08:45→20:45)
[2018-12-30] MEDS ORDERED: DEXTROSE 5%-WATER 200 ML IVPB ONE (09:42)
[2018-12-30 10:07] LABS: PLATELET COUNT 285 K/MM3 (134-434)
--- NOTE | 2018-12-30 10:43 | PN ---
Teaching Attending Note Name of Resident: Terrence Le ATTENDING PHYSICIAN STATEMENT I saw and evaluated the patient. I reviewed the resident's note and discussed the case with the resident. I agree with the resident's findings and plan as documented. SUBJECTIVE: Pt seen and examined in the ICU. Did not require pressors, blood pressure improving. No fevers. 1 set blood cultures growing gram positive cocci in clusters. OBJECTIVE: Vital Signs Period Temp Pulse Resp BP Sys/Ogden Pulse Ox Last 24 Hr 97.8 F-98.7 F 67-90 11-20 74-120/41-78 94-99 Intake & Output 12/27/18 12/28/18 12/29/18 12/30/18 23:59 23:59 23:59 23:59 Intake Total 4300 625 Output Total 600 600 Balance 3700 25 Weight 81.148 kg 80.9 kg Gen: NAD at rest Heart: RRR Lung: decreased breath sounds at the bases Abd: soft, nontender Ext: no edema CBC, BMP 12/30/18 05:42 12/30/18 05:42 Active Medications Chlorhexidine Gluconate (Hibiclens For Decolonization -) 1 applic TP HS RUFINO Last Admin: 12/29/18 22:28 Dose: 1 applic Norepinephrine Bitartrate 4, (000 mcg/ Dextrose) 500 mls @ 37.5 mls/hr IV TITR RUFINO; Protocol Piperacillin Sod/Tazobactam (Sod 4.5 gm/ Dextrose) 100 mls @ 200 mls/hr IVPB Q8H-IV RUFINO; Protocol Last Admin: 12/30/18 10:27 Dose: 200 mls/hr Sodium Chloride (Normal Saline -) 1,000 mls @ 75 mls/hr IV ASDIR RUFINO Last Admin: 12/29/18 16:09 Dose: 75 mls/hr Vancomycin HCl 1,250 mg/ (Dextrose) 250 mls @ 166.667 mls/hr IVPB Q12H RUFINO; Protocol Mupirocin (Bactroban Ointment (For Decolonization) -) 1 applic NS BID RUFINO Stop: 01/03/19 21:59 Last Admin: 12/29/18 22:28 Dose: 1 applic ASSESSMENT AND PLAN: Pneumonia likely Aspiration Sepsis improving HTN Dementia - continue antibiotics - repeat cultures - monitoring off pressors, maintain MAP >65 - aspiration precautions - PO as tolerated - d/c IVF if tolerating PO - DVT prophylaxis - can monitor on floor
[2018-12-30] MEDS ORDERED: ENOXAPARIN NA (PORCINE) 80 MG/0.8 ML DISP.SYRIN SQ SCH (11:15)
[2018-12-30] MEDS ORDERED: ENOXAPARIN NA (PORCINE) 40 MG/0.4 ML DISP.SYRIN SQ SCH (11:30)
[2018-12-30] MEDS ORDERED: VANCOMYCIN 1,250 MG in DEXTROSE 5%-WATER - 250 ML IVPB ONE (11:30)
[2018-12-30] MEDS: MUPIROCIN 2% TOPICAL OINTMENT FOR DECOLONIZATION NS SCH (11:55)
[2018-12-30 16:10] LABS: HYALINE CASTS 25 /lpf (0-8); URINE APPEARANCE CLOUDY; URINE BACTERIA 4.6 /hpf (NEGATIVE); URINE BILIRUBIN NEGATIVE (NEGATIVE); URINE COLOR DK YELLOW; URINE GLUCOSE (UA) NEGATIVE (NEGATIVE); URINE KETONE 3+ (NEGATIVE); URINE LEUK ESTERASE 2+ (NEGATIVE); URINE NITRITE NEGATIVE (NEGATIVE); URINE PROTEIN NEGATIVE (NEGATIVE); URINE RBC 118 /hpf (0-4); URINE WBC 25 /hpf (0-5)
[2018-12-30] MEDS: SODIUM CHLORIDE 1,000 ML IV SCH (18:25)
--- NOTE | 2018-12-30 19:55 | PN ---
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, Physician History of Present Illness: AWAKE BUT CONFUSED OFFERS NO COMPLAINTS AFEBRILE BREATHING NON LABORED` - Current Medication List Current Medications: Active Medications Enoxaparin Sodium (Lovenox -) 40 mg SQ DAILY RUFINO Piperacillin Sod/Tazobactam (Sod 4.5 gm/ Dextrose) 100 mls @ 200 mls/hr IVPB Q8H-IV RUFINO; Protocol Sodium Chloride (Normal Saline -) 1,000 mls @ 75 mls/hr IV ASDIR RUFINO Last Admin: 12/30/18 18:25 Dose: Not Given Vancomycin HCl 1,250 mg/ (Dextrose) 250 mls @ 166.667 mls/hr IVPB Q12H RUFINO; Protocol Piperacillin Sod/Tazobactam (Sod 4.5 gm/ Dextrose) 100 mls @ 200 mls/hr IVPB Q8H-IV RUFINO; Protocol Stop: 12/31/18 10:29 Last Admin: 12/30/18 18:27 Dose: 200 mls/hr Vancomycin HCl 1,250 mg/ (Dextrose) 250 mls @ 166.667 mls/hr IVPB ONCE ONE; Protocol Stop: 12/31/18 01:59 - Objective Vital Signs: Vital Signs Temperature 98.4 F 12/30/18 18:00 Pulse Rate 87 12/30/18 18:00 Respiratory Rate 18 12/30/18 18:00 Blood Pressure 127/77 12/30/18 18:00 O2 Sat by Pulse Oximetry (%) 94 L 12/30/18 09:00 Constitutional: Yes: No Distress Cardiovascular: Yes: Regular Rate and Rhythm, S1, S2 Respiratory: Yes: Diminished Gastrointestinal: Yes: Soft. No: Normal Bowel Sounds Labs: CBC, BMP 12/30/18 05:42 12/30/18 05:42 INR, PTT INR 1.12 (0.83-1.09) H 12/28/18 15:21 Assessment/Plan PROBABLE ASP PNEUMONIA R/O SEPSIS SECONDARY TO PNEUMONIA +BC ?SIGNIFICANCE CONTINUE ZOSYN VANCOMYCIN X 1
[2018-12-30] MEDS ORDERED: CHLORHEXIDINE GLUCONATE 4% CLEANSER FOR DECOLONIZATION TP SCH (22:00)
[2018-12-30] MEDS ORDERED: MUPIROCIN 2% TOPICAL OINTMENT FOR DECOLONIZATION NS SCH (22:00)
[2018-12-31] MEDS ORDERED: VANCOMYCIN 1,250 MG in DEXTROSE 5%-WATER - 250 ML IVPB ONE (00:30)
[2018-12-31] MEDS ORDERED: PT OWN MED DRAWER 7, Y5N ONE (00:35)
[2018-12-31] MEDS: SODIUM CHLORIDE 1,000 ML IV SCH ×2 (00:57→17:55)
--- NOTE | 2018-12-31 01:23 | PN ---
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 (short form) - Note 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: patient seen and examined in ICU unable to provide hx Vital Signs Period Temp Pulse Resp BP Sys/Ogden Pulse Ox Last 24 Hr 97.4 F-98.7 F 70-88 11-20 107-127/59-93 94 confused voices no c/o neck -jvd heart S1/S2 lungs gtossly clear abd soft non tnder CBC, BMP 12/30/18 05:42 12/30/18 05:42 + blood c/s Microbiology 12/28/18 15:21 Blood - Peripheral Venous Blood Culture - Preliminary NO GROWTH OBTAINED AFTER 48 HOURS, INCUBATION TO CONTINUE FOR 3 DAYS. 12/28/18 15:21 Blood - Peripheral Venous Blood Culture - Preliminary NO GROWTH OBTAINED AFTER 48 HOURS, INCUBATION TO CONTINUE FOR 3 DAYS. 12/29/18 02:50 Blood - Peripheral Venous Blood Culture - Preliminary Pending Organism 12/29/18 02:50 Blood - Peripheral Venous Blood Culture - Preliminary NO GROWTH OBTAINED AFTER 24 HOURS, INCUBATION TO CONTINUE FOR 4 DAYS. Active Medications Enoxaparin Sodium (Lovenox -) 40 mg SQ DAILY RUFINO Piperacillin Sod/Tazobactam (Sod 4.5 gm/ Dextrose) 100 mls @ 200 mls/hr IVPB Q8H-IV RUFINO; Protocol Sodium Chloride (Normal Saline -) 1,000 mls @ 75 mls/hr IV ASDIR RUFINO Last Admin: 12/31/18 00:57 Dose: 75 mls/hr Vancomycin HCl 1,250 mg/ (Dextrose) 250 mls @ 166.667 mls/hr IVPB Q12H RUFINO; Protocol Piperacillin Sod/Tazobactam (Sod 4.5 gm/ Dextrose) 100 mls @ 200 mls/hr IVPB Q8H-IV RUFINO; Protocol Stop: 12/31/18 10:29 Last Admin: 12/30/18 18:27 Dose: 200 mls/hr Vancomycin HCl 1,250 mg/ (Dextrose) 250 mls @ 166.667 mls/hr IVPB ONCE ONE; Protocol Stop: 12/31/18 01:59 Last Admin: 12/31/18 00:56 Dose: 166.667 mls/hr #Dysphagia NPO MBS was not done yesterday Patient has remained NPO Chext xray reviewed and neg for aspiration #Hypotension Multiple IV boluses NS > 3 liters with Bp74/40 required transfer to ICU - however BP improved and no pressors required BP trending up- 96/57 #CVA Lt sided weakness Problem List - Problems (1) Dysphagia Code(s): R13.10 - DYSPHAGIA, UNSPECIFIED Qualifiers: Dysphagia type: unspecified Qualified Code(s): R13.10 - Dysphagia, unspecified (2) Dementia Code(s): F03.90 - UNSPECIFIED DEMENTIA WITHOUT BEHAVIORAL DISTURBANCE (3) HTN (hypertension) Code(s): I10 - ESSENTIAL (PRIMARY) HYPERTENSION (4) CVA, old, alterations of sensations Code(s): I69.398 - OTHER SEQUELAE OF CEREBRAL INFARCTION; R20.9 - UNSPECIFIED DISTURBANCES OF SKIN SENSATION
[2018-12-31] MEDS ORDERED: PIPERACILLIN/TAZOBACTAM 4.5 GM VIAL IVPB ONE ×3 (02:49→17:45)
[2018-12-31] MEDS ORDERED: DEXTROSE 5%-WATER 100 ML IVPB ONE ×3 (02:50→17:45)
[2018-12-31] MEDS: PIPERACILLIN/TAZOB 4.5 GM 4.5 GM in DEXTROSE 5%-WATER 100 ML IVPB SCH ×3 (02:51→17:56)
--- NOTE | 2018-12-31 06:56 | PN ---
Physical Exam: SUBJECTIVE: Patient seen and examined at bedside. No events overnight. Pt seated upright in bed, baseline mentation, no complaints at this time OBJECTIVE: Vital Signs Period Temp Pulse Resp BP Sys/Ogden Pulse Ox Last 24 Hr 97.4 F-98.7 F 70-88 12-20 107-127/71-93 94-96 GENERAL: Awake, alert, AOX2, in no acute distress. HEAD: Normal with no signs of trauma. EYES: Pupils equal, round and reactive to light, extraocular movements intact, sclera anicteric, conjunctiva clear. No lid lag. EARS, NOSE, THROAT: Ears normal, nares patent, oropharynx clear without exudates. Moist mucous membranes. NECK: Normal range of motion, supple without lymphadenopathy, JVD, or masses. LUNGS: Breath sounds equal, rales bilateral lung bases. No accessory muscle use. HEART: Regular rate and rhythm, normal S1 and S2 without murmur, rub or gallop. ABDOMEN: Soft, nontender, not distended, normoactive bowel sounds, no guarding, no rebound, no masses. No hepatomegaly or splenomegaly. MUSCULOSKELETAL:Left upper ext 2/5 strength, left lower ext 1/5 strength. 5/5 strength R upper and lower ext. No bony deformities or tenderness. No CVA tenderness. UPPER EXTREMITIES: 2+ pulses, warm, well-perfused. No cyanosis. No clubbing. Cap refill <2 seconds. No peripheral edema. LOWER EXTREMITIES: 2+ pulses, warm, well-perfused. No calf tenderness. No peripheral edema. NEUROLOGICAL: Cranial nerves II-XII intact. Normal speech. PSYCHIATRIC: Cooperative. Good eye contact. Appropriate mood and affect. SKIN: Warm, dry, normal turgor, no rashes or lesions noted. Laboratory Results - last 24 hr 12/30/18 12/30/18 12/30/18 05:42 05:42 15:17 Plt Count 285 D Sodium 141 Potassium 3.6 Chloride 108 H Carbon Dioxide 25 Anion Gap 8 BUN 11.4 Creatinine 0.6 Est GFR (CKD-EPI)AfAm 110.06 Est GFR (CKD-EPI)NonAf 94.96 Random Glucose 68 L Calcium 7.8 L Total Bilirubin 1.1 H AST 18 ALT 11 L Alkaline Phosphatase 73 Troponin I < 0.02 Total Protein 4.7 L Albumin 2.4 L Urine Color Dk yellow Urine Appearance Cloudy Urine pH 5.0 Ur Specific Maunie 1.022 Urine Protein Negative Urine Glucose (UA) Negative Urine Ketones 3+ H Urine Blood 3+ H Urine Nitrite Negative Urine Bilirubin Negative Urine Urobilinogen 2.0 Ur Leukocyte Esterase 2+ H Urine WBC (Auto) 25 Urine RBC (Auto) 118 Urine Casts (Auto) 25 U Epithel Cells (Auto) 3.0 Urine Bacteria (Auto) 4.6 Active Medications Generic Name Dose Route Start Last Admin Trade Name Nikolai PRN Reason Stop Dose Admin Enoxaparin Sodium 40 mg 12/31/18 10:00 Lovenox - SQ DAILY RUFINO Piperacillin Sod/Tazobactam 100 mls @ 200 mls/hr 12/31/18 18:00 Sod 4.5 gm/ Dextrose IVPB Q8H-IV RUFINO Protocol Sodium Chloride 1,000 mls @ 75 mls/hr 12/30/18 16:06 12/31/18 00:57 Normal Saline - IV 75 mls/hr ASDIR RUFINO Administration Vancomycin HCl 1,250 mg/ 250 mls @ 166.667 mls/hr 12/30/18 20:45 Dextrose IVPB Q12H RUFINO Protocol Piperacillin Sod/Tazobactam 100 mls @ 200 mls/hr 12/30/18 18:00 12/31/18 02: 51 Sod 4.5 gm/ Dextrose IVPB 12/31/18 10:29 200 mls/hr Q8H-IV RUFINO Administration Protocol ASSESSMENT/PLAN: 77 yo male pmh dementia, HTN, HLD, CVA with left sided residual weakness, PVD and metabolic encephalopathy BIBA from [facility] and admitted to the floor for likely aspiration PNA. ICU consulted for refractory hypertension in the 70s after 3-4L NS. BP noted to be low since 7AM. Pt is AOX2, NAD, no current complaints of pain, CP, SOB, DRAPER, F/C/N/V, trauma. Pt likely septic/ septic shock from possible PNA. Levo ordered, not required Gram + cocci growth in both aerobic and anerobic bottles Vanc added along with Zosyn F/C UA/cultures F/U repeat blood work Follow CVP to guide fluid resuscitation Strict I & O Aspiration precautions O2 as needed to maintain saturation above 90% Requires ICU monitoring for shock Dispo: We will continue to follow the patient. Thank you for this consultative opportunity. Visit type - Emergency Visit Emergency Visit: No - New Patient This patient is new to me today: No - Critical Care Critical Care patient: Yes Total Critical Care Time (in minutes): 36 Critical Care Statement: The care of this patient involved high complexity decision making to prevent further life threatening deterioration of the patient 's condition and/or to evaluate & treat vital organ system(s) failure or risk of failure.
[2018-12-31] MEDS: ENOXAPARIN NA (PORCINE) 40 MG/0.4 ML DISP.SYRIN SQ SCH (09:25)
--- NOTE | 2018-12-31 11:49 | PN ---
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 (short form) - Note 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: patient seen and examined on medical martinez unable to provide hx has remained NPO states he is hungry Vital Signs Period Temp Pulse Resp BP Sys/Ogden Pulse Ox Last 24 Hr 97.4 F-98.7 F 70-87 12-20 118-127/71-93 96 voices no c/o neck -jvd heart S1/S2 lungs grossly clear abd soft non tender CBC, BMP 12/30/18 05:42 12/30/18 05:42 + blood c/s Microbiology 12/29/18 17:00 Urine - Urine Gibson Urine Culture - Final NO GROWTH OBTAINED 12/29/18 02:50 Blood - Peripheral Venous Blood Culture - Preliminary Staphylococcus Coagulase Neg 12/29/18 02:50 Blood - Peripheral Venous Blood Culture - Preliminary NO GROWTH OBTAINED AFTER 48 HOURS, INCUBATION TO CONTINUE FOR 3 DAYS. 12/28/18 15:21 Blood - Peripheral Venous Blood Culture - Preliminary NO GROWTH OBTAINED AFTER 48 HOURS, INCUBATION TO CONTINUE FOR 3 DAYS. 12/28/18 15:21 Blood - Peripheral Venous Blood Culture - Preliminary NO GROWTH OBTAINED AFTER 48 HOURS, INCUBATION TO CONTINUE FOR 3 DAYS. 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 Per [place] report, patient "choked" six times in the past month while eating. He is on a pureed diet with allowances for a mechanical soft diet. Patient became hypotensive and not responded to IV bolus and was transferred to ICU. DUring ICU stay BP improved and did not require pressors for BP support. He is on medical martinez - clinically stable Discussed with Nursing at [facility] - he will not allow feeding tube, so will try PO cautiously. #Dysphagia NPO MBS no done - will try thicken fluid --if tolerated will progress to puree Chext xray reviewed and neg for aspiration #Hypotension s/p multiple IV boluses NS BP trending up- continue to monitor #CVA Lt sided weakness # Neuropathy / chronic pain LE Problem List - Problems (1) Dysphagia Code(s): R13.10 - DYSPHAGIA, UNSPECIFIED Qualifiers: Dysphagia type: unspecified Qualified Code(s): R13.10 - Dysphagia, unspecified (2) Dementia Code(s): F03.90 - UNSPECIFIED DEMENTIA WITHOUT BEHAVIORAL DISTURBANCE (3) HTN (hypertension) Code(s): I10 - ESSENTIAL (PRIMARY) HYPERTENSION (4) CVA, old, alterations of sensations Code(s): I69.398 - OTHER SEQUELAE OF CEREBRAL INFARCTION; R20.9 - UNSPECIFIED DISTURBANCES OF SKIN SENSATION
--- NOTE | 2018-12-31 13:14 | PN ---
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 (short form) - Note 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: PULMONARY Denies shortness of breath, cough or fevers. Vital Signs Period Temp Pulse Resp BP Sys/Ogden Pulse Ox Last 24 Hr 97.4 F-98.4 F 82-87 17-20 118-127/71-93 96 Gen: NAD at rest Heart: RRR Lung: decreased breath sounds at the bases Abd: soft, nontender Ext: no edema CBC, BMP 12/30/18 05:42 12/30/18 05:42 Active Medications Enoxaparin Sodium (Lovenox -) 40 mg SQ DAILY RUFINO Last Admin: 12/31/18 09:25 Dose: 40 mg Piperacillin Sod/Tazobactam (Sod 4.5 gm/ Dextrose) 100 mls @ 200 mls/hr IVPB Q8H-IV RUFINO; Protocol Sodium Chloride (Normal Saline -) 1,000 mls @ 75 mls/hr IV ASDIR RUFINO Last Admin: 12/31/18 00:57 Dose: 75 mls/hr Vancomycin HCl 1,250 mg/ (Dextrose) 250 mls @ 166.667 mls/hr IVPB Q12H RUFINO; Protocol A/P Pneumonia likely Aspiration Sepsis improving HTN Dementia - continue antibiotics - aspiration precautions - PO as tolerated - can d/c IVF if tolerating PO - DVT prophylaxis
--- NOTE | 2018-12-31 13:54 | PN ---
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, Physician History of Present Illness: TRANSFERRED TO REGULAR FLOOR AWAKE. NO COMPLAINTS AFEBRILE BREATHING NON LABORED` - Current Medication List Current Medications: Active Medications Enoxaparin Sodium (Lovenox -) 40 mg SQ DAILY RUFINO Last Admin: 12/31/18 09:25 Dose: 40 mg Piperacillin Sod/Tazobactam (Sod 4.5 gm/ Dextrose) 100 mls @ 200 mls/hr IVPB Q8H-IV RUFINO; Protocol Sodium Chloride (Normal Saline -) 1,000 mls @ 75 mls/hr IV ASDIR RUFINO Last Admin: 12/31/18 00:57 Dose: 75 mls/hr Vancomycin HCl 1,250 mg/ (Dextrose) 250 mls @ 166.667 mls/hr IVPB Q12H RUFINO; Protocol - Objective Vital Signs: Vital Signs Temperature 97.8 F 12/31/18 10:00 Pulse Rate 82 12/31/18 10:00 Respiratory Rate 20 12/31/18 10:00 Blood Pressure 118/79 12/31/18 10:00 O2 Sat by Pulse Oximetry (%) 96 12/30/18 21:00 Constitutional: Yes: No Distress Cardiovascular: Yes: Regular Rate and Rhythm, S1, S2 Respiratory: Yes: Diminished Gastrointestinal: Yes: Normal Bowel Sounds, Soft. No: Tenderness Edema: No Labs: CBC, BMP 12/30/18 05:42 12/30/18 05:42 INR, PTT INR 1.12 (0.83-1.09) H 12/28/18 15:21 Assessment/Plan PROBABLE ASP PNEUMONIA R/O SEPSIS SECONDARY TO PNEUMONIA +BC LIKELY CONTAMINANT CONTINUE ZOSYN
[2019-01-01] MEDS ORDERED: PIPERACILLIN/TAZOBACTAM 4.5 GM VIAL IVPB ONE ×4 (00:17→23:34)
[2019-01-01] MEDS ORDERED: DEXTROSE 5%-WATER 100 ML IVPB ONE ×4 (00:18→23:34)
[2019-01-01] MEDS: PIPERACILLIN/TAZOB 4.5 GM 4.5 GM in DEXTROSE 5%-WATER 100 ML IVPB SCH ×3 (01:15→17:45)
[2019-01-01 07:14] LABS: BASO % 0.7 % (0-2.0); EOS % 5.4 % (0-4.5); HEMATOCRIT 34.1 % (35.4-49); HEMOGLOBIN 11.9 GM/dL (11.7-16.9); LYMPH % 12.4 % (8-40); MCH 31.3 pg (25.7-33.7); MCHC 34.7 g/dl (32.0-35.9); MEAN CELL VOLUME 90.2 fl (80-96); MEAN PLT VOLUME 8.1 fl (7.5-11.1); MONO % 10.8 % (3.8-10.2); NEUT % 70.7 % (42.8-82.8); PLATELET COUNT 189 K/MM3 (134-434); RBC 3.79 M/mm3 (4.00-5.60); RDW 13.1 % (11.9-15.9); WHITE BLOOD COUNT 6.4 K/mm3 (4.0-10.0)
[2019-01-01 07:34] LABS: BLOOD UREA NITROGEN 7.9 mg/dL (7-18); CALCIUM 7.9 mg/dL (8.5-10.1); CREATININE 0.5 mg/dL (0.55-1.3); POTASSIUM 3.1 mmol/L (3.5-5.1)
--- NOTE | 2019-01-01 09:09 | PN ---
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: Selected Entries 12/28/18 12/28/18 12/28/18 14:40 19:16 19:58 Supper Temperature Blood Pressure 126/79 143/81 Blood Pressure 121/70 [Left Arm] 12/29/18 12/29/18 12/29/18 01:30 07:00 07:45 Supper Temperature Blood Pressure 93/69 79/48 L 87/48 L Blood Pressure [Left Arm] 12/29/18 12/29/18 12/29/18 08:20 09:10 09:56 Supper Temperature Blood Pressure 74/45 L 88/53 L 96/55 L Blood Pressure [Left Arm] 12/29/18 12/29/18 12/29/18 11:50 12:30 13:00 Supper Temperature Blood Pressure 74/41 L 76/43 L 77/48 L Blood Pressure [Left Arm] 12/29/18 12/29/18 12/29/18 14:00 16:00 18:00 Supper Temperature Blood Pressure 108/59 L 113/67 120/67 Blood Pressure [Left Arm] 12/29/18 12/29/18 12/30/18 20:01 22:00 00:00 Supper Temperature Blood Pressure 119/75 117/55 L 112/69 Blood Pressure [Left Arm] 12/30/18 12/30/18 12/30/18 02:00 04:00 06:00 Supper Temperature Blood Pressure 112/65 108/59 L 110/76 Blood Pressure [Left Arm] 12/30/18 12/30/18 12/30/18 08:00 10:00 12:00 Supper Temperature Blood Pressure 107/78 124/79 122/76 Blood Pressure [Left Arm] 12/30/18 12/30/18 12/30/18 14:00 18:00 23:15 Supper Temperature Blood Pressure 121/93 127/77 125/76 Blood Pressure [Left Arm] 12/31/18 12/31/18 12/31/18 01:07 06:03 10:00 Supper Temperature 97.4 F L 98.3 F 97.8 F Blood Pressure 123/72 126/71 118/79 Blood Pressure [Left Arm] 12/31/18 12/31/18 12/31/18 14:24 19:12 19:16 Supper NPO Temperature 97.8 F 98.3 F Blood Pressure 113/76 130/65 Blood Pressure [Left Arm] 12/31/18 01/01/19 01/01/19 21:34 01:28 05:53 Supper Temperature 98.4 F 98.0 F 98.2 F Blood Pressure 99/58 L 115/63 111/70 Blood Pressure [Left Arm] Laboratory Tests 12/29/18 12/30/18 01/01/19 06:37 05:42 06:04 WBC 12.1 H 9.3 6.4 Pt now on 7w. Last week, patient became hypotensive and not responded to IV bolus and was transferred to ICU. MBS was deferred per medical team due to low BP. During ICU stay BP improved and did not require pressors for BP support. Per ID-PROBABLE ASP PNEUMONIA R/O SEPSIS SECONDARY TO PNEUMONIA Pt has been kept NPO. Pending MBS today.
[2019-01-01] MEDS: ENOXAPARIN NA (PORCINE) 40 MG/0.4 ML DISP.SYRIN SQ SCH (10:50)
[2019-01-01] MEDS: SODIUM CHLORIDE 1,000 ML IV SCH ×2 (10:52→17:41)
--- NOTE | 2019-01-01 11:23 | PN ---
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 (short form) - Note 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: Resting in NAD. Awake but confused. No acute events overnight. Intake & Output 12/29/18 12/30/18 12/31/18 01/01/19 23:59 23:59 23:59 23:59 Intake Total 4300 1625 875 925 Output Total 600 1650 2750 500 Balance 0405 -00 -0064 799 Weight 178 lb 5.663 oz Last Vital Signs Temp Pulse Resp BP Pulse Ox 98.2 F 90 20 137/84 96 01/01/19 09:42 01/01/19 09:42 01/01/19 09:42 01/01/19 09:42 12/31/18 21:00 Active Medications Enoxaparin Sodium (Lovenox -) 40 mg SQ DAILY RUFINO Last Admin: 01/01/19 10:50 Dose: 40 mg Piperacillin Sod/Tazobactam (Sod 4.5 gm/ Dextrose) 100 mls @ 200 mls/hr IVPB Q8H-IV RUFINO; Protocol Last Admin: 01/01/19 10:51 Dose: 200 mls/hr Sodium Chloride (Normal Saline -) 1,000 mls @ 75 mls/hr IV ASDIR RUFINO Last Admin: 01/01/19 10:52 Dose: 75 mls/hr Gen: NAD at rest Heart: RRR Lung: decreased breath sounds at the bases Abd: soft, nontender Ext: no edema Laboratory Results - last 24 hr 01/01/19 01/01/19 06:04 06:04 WBC 6.4 RBC 3.79 L Hgb 11.9 Hct 34.1 L MCV 90.2 MCH 31.3 MCHC 34.7 RDW 13.1 Plt Count 189 D MPV 8.1 Absolute Neuts (auto) 4.5 Neutrophils % 70.7 Lymphocytes % 12.4 D Monocytes % 10.8 H Eosinophils % 5.4 H Basophils % 0.7 Nucleated RBC % 0 Sodium 143 Potassium 3.1 L Chloride 108 H Carbon Dioxide 26 Anion Gap 8 BUN 7.9 Creatinine 0.5 L Est GFR (CKD-EPI)AfAm 118.62 Est GFR (CKD-EPI)NonAf 102.35 Random Glucose 71 L Calcium 7.9 L A/P Pneumonia likely Aspiration Sepsis improving HTN Dementia ABX Per ID Aspiration precautions For MBS today VTE prophylaxis Dr Anderson
[2019-01-01] MEDS: KCL 10 MEQ IVPB 10 MEQ/100 ML INFUS.BAG IVPB SCH ×2 (13:14→14:41)
[2019-01-01 14:35] VITALS: BMI 24.1
--- NOTE | 2019-01-01 16:28 | PN ---
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 (short form) - Note 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: comfortable NAD Vital Signs Period Temp Pulse Resp BP Sys/Ogden Pulse Ox Last 24 Hr 98 F-98.4 F 74-93 18-20 99-137/58-84 96-98 cor-rrr lungs decreased bs at bases abd soft,nt ext no edema CBC, BMP 01/01/19 06:04 01/01/19 06:04 Microbiology 12/28/18 15:21 Blood - Peripheral Venous Blood Culture - Preliminary NO GROWTH OBTAINED AFTER 96 HOURS, INCUBATION TO CONTINUE FOR 1 DAYS. 12/28/18 15:21 Blood - Peripheral Venous Blood Culture - Preliminary NO GROWTH OBTAINED AFTER 96 HOURS, INCUBATION TO CONTINUE FOR 1 DAYS. 12/29/18 02:50 Blood - Peripheral Venous Blood Culture - Final Staphylococcus Epidermidis 12/29/18 02:50 Blood - Peripheral Venous Blood Culture - Preliminary NO GROWTH OBTAINED AFTER 72 HOURS, INCUBATION TO CONTINUE FOR 2 DAYS. 12/29/18 17:00 Urine - Urine Gibson Urine Culture - Final NO GROWTH OBTAINED Current Medications Enoxaparin Sodium (Lovenox -) 40 mg SQ DAILY RUFINO Last Admin: 01/01/19 10:50 Dose: 40 mg Piperacillin Sod/Tazobactam (Sod 4.5 gm/ Dextrose) 100 mls @ 200 mls/hr IVPB Q8H-IV RUFINO; Protocol Last Admin: 01/01/19 10:51 Dose: 200 mls/hr Sodium Chloride (Normal Saline -) 1,000 mls @ 75 mls/hr IV ASDIR RUFINO Last Admin: 01/01/19 10:52 Dose: 75 mls/hr a/p probable aspiration pneumonia- day #4 zosyn can switch to augmentin suspension in am if patient is tolerating pos finish 7 days total (another 72 hours) dementia Problem List - Problems (1) Sepsis Code(s): A41.9 - SEPSIS, UNSPECIFIED ORGANISM (2) Aspiration pneumonia Code(s): J69.0 - PNEUMONITIS DUE TO INHALATION OF FOOD AND VOMIT (3) Dementia Code(s): F03.90 - UNSPECIFIED DEMENTIA WITHOUT BEHAVIORAL DISTURBANCE (4) Dysphagia Code(s): R13.10 - DYSPHAGIA, UNSPECIFIED Qualifiers: Dysphagia type: unspecified Qualified Code(s): R13.10 - Dysphagia, unspecified
--- NOTE | 2019-01-01 21:28 | PN ---
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 (short form) - Note 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: patient seen and examined on medical martinez unable to provide hx has remained NPO states he is hungry for bms today Vital Signs Period Temp Pulse Resp BP Sys/Ogden Pulse Ox Last 24 Hr 98 F-98.5 F 74-90 18-20 99-137/58-84 98-98 voices no c/o neck -jvd heart S1/S2 lungs grossly clear abd soft non tender CBC, BMP 01/01/19 06:04 01/01/19 06:04 CBC, BMP 12/30/18 05:42 12/30/18 05:42 + blood c/s Microbiology 12/28/18 15:21 Blood - Peripheral Venous Blood Culture - Preliminary NO GROWTH OBTAINED AFTER 96 HOURS, INCUBATION TO CONTINUE FOR 1 DAYS. 12/28/18 15:21 Blood - Peripheral Venous Blood Culture - Preliminary NO GROWTH OBTAINED AFTER 96 HOURS, INCUBATION TO CONTINUE FOR 1 DAYS. 12/29/18 02:50 Blood - Peripheral Venous Blood Culture - Final Staphylococcus Epidermidis 12/29/18 02:50 Blood - Peripheral Venous Blood Culture - Preliminary NO GROWTH OBTAINED AFTER 72 HOURS, INCUBATION TO CONTINUE FOR 2 DAYS. 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 Per [place] report, patient "choked" six times in the past month while eating. He is on a pureed diet with allowances for a mechanical soft diet. Patient became hypotensive and not responded to IV bolus and was transferred to ICU. DUring ICU stay BP improved and did not require pressors for BP support. He is on medical martinez - clinically stable Discussed with Nursing at [facility] - he will not allow feeding tube, so will try PO cautiously. #Dysphagia NPO MBS not done -scheduled for today Chext xray reviewed and neg for aspiration #Hypotension s/p multiple IV boluses NS- transfered to ICU but did not require pressors currently in medical martinez with stable bp continue to monitor #CVA Lt sided weakness # Neuropathy / chronic pain LE continue home meds Problem List - Problems (1) Dysphagia Code(s): R13.10 - DYSPHAGIA, UNSPECIFIED Qualifiers: Dysphagia type: unspecified Qualified Code(s): R13.10 - Dysphagia, unspecified (2) Dementia Code(s): F03.90 - UNSPECIFIED DEMENTIA WITHOUT BEHAVIORAL DISTURBANCE (3) HTN (hypertension) Code(s): I10 - ESSENTIAL (PRIMARY) HYPERTENSION (4) CVA, old, alterations of sensations Code(s): I69.398 - OTHER SEQUELAE OF CEREBRAL INFARCTION; R20.9 - UNSPECIFIED DISTURBANCES OF SKIN SENSATION
[2019-01-02] MEDS: PIPERACILLIN/TAZOB 4.5 GM 4.5 GM in DEXTROSE 5%-WATER 100 ML IVPB SCH ×2 (01:05→09:22)
[2019-01-02 07:24] LABS: BLOOD UREA NITROGEN 6.9 mg/dL (7-18); CALCIUM 7.9 mg/dL (8.5-10.1); CREATININE 0.5 mg/dL (0.55-1.3); POTASSIUM 3.1 mmol/L (3.5-5.1)
[2019-01-02 08:18] LABS: BASO % 0.8 % (0-2.0); EOS % 5.9 % (0-4.5); HEMATOCRIT 36.8 % (35.4-49); HEMOGLOBIN 12.6 GM/dL (11.7-16.9); LYMPH % 16.2 % (8-40); MCHC 34.1 g/dl (32.0-35.9); MEAN CELL VOLUME 90.9 fl (80-96); MEAN PLT VOLUME 8.5 fl (7.5-11.1); MONO % 10.5 % (3.8-10.2); NEUT % 66.6 % (42.8-82.8); PLATELET COUNT 192 K/MM3 (134-434); RBC 4.05 M/mm3 (4.00-5.60); RDW 12.9 % (11.9-15.9); WHITE BLOOD COUNT 6.2 K/mm3 (4.0-10.0)
[2019-01-02] MEDS ORDERED: DEXTROSE 5%-WATER 100 ML IVPB ONE (08:52)
[2019-01-02] MEDS ORDERED: PIPERACILLIN/TAZOBACTAM 4.5 GM VIAL IVPB ONE (08:52)
[2019-01-02] MEDS: ENOXAPARIN NA (PORCINE) 40 MG/0.4 ML DISP.SYRIN SQ SCH (09:22)
[2019-01-02] MEDS ORDERED: POTASSIUM CHLORIDE TABS 20 MEQ TABLET.ER (FP) PO ONE (09:48)
--- NOTE | 2019-01-02 09:49 | PN ---
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 (short form) - Note 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: patient seen and examined on medical martinez no distress was able to eat yesterday over 50% awake and alert Vital Signs Period Temp Pulse Resp BP Sys/Ogden Pulse Ox Last 24 Hr 97.7 F-98.5 F 68-84 20-20 109-130/59-75 98 voices no c/o neck -jvd heart S1/S2 lungs grossly clear abd soft non tender ext -edema CBC, BMP 01/02/19 06:00 01/02/19 06:00 + blood c/s Microbiology 12/28/18 15:21 Blood - Peripheral Venous Blood Culture - Preliminary NO GROWTH OBTAINED AFTER 96 HOURS, INCUBATION TO CONTINUE FOR 1 DAYS. 12/28/18 15:21 Blood - Peripheral Venous Blood Culture - Preliminary NO GROWTH OBTAINED AFTER 96 HOURS, INCUBATION TO CONTINUE FOR 1 DAYS. 12/29/18 02:50 Blood - Peripheral Venous Blood Culture - Final Staphylococcus Epidermidis 12/29/18 02:50 Blood - Peripheral Venous Blood Culture - Preliminary NO GROWTH OBTAINED AFTER 72 HOURS, INCUBATION TO CONTINUE FOR 2 DAYS. 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 Per [place] report, patient "choked" six times in the past month while eating. He is on a pureed diet with allowances for a mechanical soft diet. Patient became hypotensive and not responded to IV bolus and was transferred to ICU. DUring ICU stay BP improved and did not require pressors for BP support. He is on medical martinez - clinically stable Discussed with Nursing at [facility] - he will not allow feeding tube, so will try PO cautiously. #Dysphagia toleratnig feeds aspitration precautions Chext xray reviewed and neg for aspiration ? babsilar infiltrates ?? atelectasis not febrile / no Leukocytes / no cough will give Neb treatments and re asses # Hypokalemia replace lytes ck Mag #Hypotension s/p multiple IV boluses NS- transfered to ICU but did not require pressors currently in medical martinez with stable bp continue to monitor #CVA Lt sided weakness # Neuropathy / chronic pain LE continue home meds Problem List - Problems (1) Dysphagia Code(s): R13.10 - DYSPHAGIA, UNSPECIFIED Qualifiers: Dysphagia type: unspecified Qualified Code(s): R13.10 - Dysphagia, unspecified (2) Dementia Code(s): F03.90 - UNSPECIFIED DEMENTIA WITHOUT BEHAVIORAL DISTURBANCE (3) HTN (hypertension) Code(s): I10 - ESSENTIAL (PRIMARY) HYPERTENSION (4) CVA, old, alterations of sensations Code(s): I69.398 - OTHER SEQUELAE OF CEREBRAL INFARCTION; R20.9 - UNSPECIFIED DISTURBANCES OF SKIN SENSATION
--- NOTE | 2019-01-02 11:03 | PN ---
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 (short form) - Note 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: Resting in NAD. No acute events overnight. Apparently tolerating some PO intake. Intake & Output 12/30/18 12/31/18 01/01/19 01/02/19 23:59 23:59 23:59 23:59 Intake Total 2423 033 6309 Output Total 1650 2750 1100 250 Balance -25 -1875 1275 -250 Weight 178 lb 5.663 oz 178 lb Last Vital Signs Temp Pulse Resp BP Pulse Ox 97.7 F 68 20 130/75 98 01/02/19 06:16 01/02/19 06:16 01/02/19 06:16 01/02/19 06:16 01/01/19 20:35 Active Medications Albuterol/Ipratropium (Duoneb -) 1 amp NEB RQID RUFINO Enoxaparin Sodium (Lovenox -) 40 mg SQ DAILY RUFINO Last Admin: 01/02/19 09:22 Dose: 40 mg Piperacillin Sod/Tazobactam (Sod 4.5 gm/ Dextrose) 100 mls @ 200 mls/hr IVPB Q8H-IV RUFINO; Protocol Last Admin: 01/02/19 09:22 Dose: 200 mls/hr Sodium Chloride (Normal Saline -) 1,000 mls @ 75 mls/hr IV ASDIR RUFINO Last Admin: 01/01/19 17:41 Dose: Not Given Gen: NAD at rest Heart: RRR Lung: decreased breath sounds at the bases Abd: soft, nontender Ext: no edema Laboratory Results - last 24 hr 01/01/19 01/02/19 01/02/19 06:04 06:00 06:00 WBC 6.2 RBC 4.05 Hgb 12.6 Hct 36.8 MCV 90.9 MCH 31.0 MCHC 34.1 RDW 12.9 Plt Count 189 D 192 MPV 8.5 Absolute Neuts (auto) 4.1 Neutrophils % 66.6 Lymphocytes % 16.2 D Monocytes % 10.5 H Eosinophils % 5.9 H Basophils % 0.8 Nucleated RBC % 0 Sodium 143 Potassium 3.1 L Chloride 110 H Carbon Dioxide 28 Anion Gap 5 L BUN 6.9 L Creatinine 0.5 L Est GFR (CKD-EPI)AfAm 118.62 Est GFR (CKD-EPI)NonAf 102.35 Random Glucose 90 Calcium 7.9 L A/P Pneumonia likely Aspiration Sepsis improving HTN Dementia ABX Per ID Aspiration precautions PO as tolerated VTE prophylaxis Dr Anderson
--- NOTE | 2019-01-02 11:20 | PN ---
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 Reviewed compensatory swallowing recommendations of small bites, chin tuck, multiple hard swallows followed by liquid to clear pharyngeal hang-up. STM is impaired. Pt is dependent on continuous verbal cues by charge master coordinator to manage PO intake safely at this time. Pt is doing well so far. Monitor PO tolerance. Pt will benefit from continued dysphagia tx upon d/c at [facility].
[2019-01-02] MEDS: ALBUTEROL SO4 2.5/IPRATROPIUM 0.5 INH SOL 3 ML VIAL.NEB. NEB SCH ×2 (13:20→16:50)
--- NOTE | 2019-01-02 14:25 | PN ---
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 (short form) - Note 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: more alert comfortable NAD now on dysphagia diet Vital Signs Period Temp Pulse Resp BP Sys/Ogden Pulse Ox Last 24 Hr 97.7 F-98.5 F 68-84 18-20 109-136/59-82 98-98 cor-rrr lungs decreased bs at bases abd soft,nt ext no edema CBC, BMP 01/02/19 06:00 01/02/19 06:00 Microbiology 12/29/18 02:50 Blood - Peripheral Venous Blood Culture - Preliminary NO GROWTH OBTAINED AFTER 96 HOURS, INCUBATION TO CONTINUE FOR 1 DAYS. 12/28/18 15:21 Blood - Peripheral Venous Blood Culture - Preliminary NO GROWTH OBTAINED AFTER 96 HOURS, INCUBATION TO CONTINUE FOR 1 DAYS. 12/28/18 15:21 Blood - Peripheral Venous Blood Culture - Preliminary NO GROWTH OBTAINED AFTER 96 HOURS, INCUBATION TO CONTINUE FOR 1 DAYS. 12/29/18 02:50 Blood - Peripheral Venous Blood Culture - Final Staphylococcus Epidermidis 12/29/18 17:00 Urine - Urine Gibson Urine Culture - Final NO GROWTH OBTAINED Current Medications Albuterol/Ipratropium (Duoneb -) 1 amp NEB RQID RUFINO Enoxaparin Sodium (Lovenox -) 40 mg SQ DAILY [facility] Last Admin: 01/02/19 09:22 Dose: 40 mg Piperacillin Sod/Tazobactam (Sod 4.5 gm/ Dextrose) 100 mls @ 200 mls/hr IVPB Q8H-IV RUFINO; Protocol Last Admin: 01/02/19 09:22 Dose: 200 mls/hr Sodium Chloride (Normal Saline -) 1,000 mls @ 75 mls/hr IV ASDIR RUFINO Last Admin: 01/01/19 17:41 Dose: Not Given a/p probable aspiration pneumonia- day #5 zosyn will switch to augmentin suspension to complete 7 days dementia please call back if needed Problem List - Problems (1) Sepsis Code(s): A41.9 - SEPSIS, UNSPECIFIED ORGANISM (2) Aspiration pneumonia Code(s): J69.0 - PNEUMONITIS DUE TO INHALATION OF FOOD AND VOMIT (3) Dementia Code(s): F03.90 - UNSPECIFIED DEMENTIA WITHOUT BEHAVIORAL DISTURBANCE (4) Dysphagia Code(s): R13.10 - DYSPHAGIA, UNSPECIFIED Qualifiers: Dysphagia type: unspecified Qualified Code(s): R13.10 - Dysphagia, unspecified
[2019-01-02] MEDS: AMOX TR/POTASSIUM CLAVULANATE 250 MG/5 ML BOTTLE PO SCH (17:30)
[2019-01-02] MEDS: SODIUM CHLORIDE 1,000 ML IV SCH (17:31)
[2019-01-02] MEDS ORDERED: METOPROLOL TARTRATE 25 MG TABLET (FP) PO ONE (21:18)
[2019-01-02] MEDS: RIVAROXABAN 20 MG TABLET PO SCH (23:38)
[2019-01-03 07:42] LABS: BASO % 0.4 % (0-2.0); EOS % 3.7 % (0-4.5); HEMATOCRIT 36.2 % (35.4-49); HEMOGLOBIN 12.3 GM/dL (11.7-16.9); LYMPH % 15.6 % (8-40); MCH 31.2 pg (25.7-33.7); MCHC 34.1 g/dl (32.0-35.9); MEAN CELL VOLUME 91.7 fl (80-96); MEAN PLT VOLUME 8.4 fl (7.5-11.1); MONO % 10.4 % (3.8-10.2); NEUT % 69.9 % (42.8-82.8); PLATELET COUNT 215 K/MM3 (134-434); RBC 3.95 M/mm3 (4.00-5.60); RDW 13.3 % (11.9-15.9); WHITE BLOOD COUNT 6.3 K/mm3 (4.0-10.0)
[2019-01-03 07:44] LABS: BLOOD UREA NITROGEN 7.4 mg/dL (7-18); CALCIUM 8.3 mg/dL (8.5-10.1); CREATININE 0.5 mg/dL (0.55-1.3); MAGNESIUM 1.9 mg/dL (1.8-2.4); POTASSIUM 3.5 mmol/L (3.5-5.1)
[2019-01-03] MEDS: IPRATROPIUM BR 0.02% 0.5 MG/2.5 ML VIAL.NEB. NEB SCH ×4 (07:45→20:40)
[2019-01-03] MEDS: SODIUM CHLORIDE 1,000 ML IV SCH ×2 (09:31→16:12)
[2019-01-03] MEDS: AMOX TR/POTASSIUM CLAVULANATE 250 MG/5 ML BOTTLE PO SCH ×3 (09:32→17:42)
[2019-01-03] MEDS: ENOXAPARIN NA (PORCINE) 40 MG/0.4 ML DISP.SYRIN SQ SCH (09:32)
[2019-01-03] MEDS ORDERED: METOPROLOL TARTRATE 25 MG TABLET (FP) PO ONE (09:45)
[2019-01-03] MEDS ORDERED: POTASSIUM CHLORIDE TABS 20 MEQ TABLET.ER (FP) PO ONE (10:25)
--- NOTE | 2019-01-03 10:43 | PN ---
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 (short form) - Note 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: events of last night reviewed sinus tach / probably associated with nebulizer treatment good response to BB Patient asymptomatic last night per nursing no distress / comfortable today was able to eat yesterday over 50% awake and alert Vital Signs Period Temp Pulse Resp BP Sys/Ogden Pulse Ox Last 24 Hr 97.7 F-98.7 F 65-145 20-20 110-148/58-87 98 voices no c/o neck -jvd heart S1/S2 lungs grossly clear abd soft non tender ext -edema CBC, [facility] 01/03/19 06:15 01/03/19 06:15 CBC, [facility] 01/02/19 06:00 01/02/19 06:00 CXR bibasilar infiltrates -- ?? possibly ateletasis + blood c/s Microbiology 12/29/18 02:50 Blood - Peripheral Venous Blood Culture - Final NO GROWTH AFTER 5 DAYS INCUBATION 12/28/18 15:21 Blood - Peripheral Venous Blood Culture - Final NO GROWTH AFTER 5 DAYS INCUBATION 12/28/18 15:21 Blood - Peripheral Venous Blood Culture - Final NO GROWTH AFTER 5 DAYS INCUBATION 12/29/18 02:50 Blood - Peripheral Venous Blood Culture - Final Staphylococcus Epidermidis 12/29/18 17:00 Urine - Urine Gibson Urine Culture - Final NO GROWTH OBTAINED Active Medications Amoxicillin/Clavulanate Potassium (Augmentin 250 Mg/5 Ml Oral Suspension -) 500 mg PO TIDCM [facility] Last Admin: 01/03/19 09:32 Dose: 5 ml Enoxaparin Sodium (Lovenox -) 40 mg SQ DAILY [facility] Stop: 01/03/19 23:59 Last Admin: 01/03/19 09:32 Dose: 40 mg Sodium Chloride (Normal Saline -) 1,000 mls @ 75 mls/hr IV ASDIR [facility] Last Admin: 01/03/19 09:31 Dose: 75 mls/hr Ipratropium [place] (Atrovent 0.02% Nebulizer -) 1 amp NEB RQID [facility] Last Admin: 01/03/19 07:45 Dose: 1 amp Rivaroxaban (Xarelto) 20 mg PO DAILY@1800 [facility] Last Admin: 01/02/19 23:38 Dose: 20 mg 77yo M with PMH of HTN, HLD, 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 Per AL report, patient "choked" six times in the past month while eating. He is on a pureed diet with allowances for a mechanical soft diet. Patient became hypotensive and not responded to IV bolus and was transferred to ICU. DUring ICU stay BP improved and did not require pressors for BP support. He is on medical martinez - clinically stable Discussed with Nursing at [facility] - he will not allow feeding tube, so will try PO cautiously. # tachyxcardia / a fib a fib associated with B agoinst treatment tolerated Metolprolol -- will continue started on xarelto Cardio consult requested will need telemetry to monitor rate #Dysphagia toleratnig feeds aspitration precautions Chext xray reviewed and neg for aspiration ? babsilar infiltrates ?? atelectasis not febrile / no Leukocytes / no cough will give Neb treatments and re asses # Hypokalemia replace lytes - keep K >4 / Mag >2 #Hypotension s/p multiple IV boluses NS- transfered to ICU but did not require pressors currently in medical martinez with stable bp continue to monitor #CVA Lt sided weakness # Neuropathy / chronic pain LE continue home meds Problem List - Problems (1) Dysphagia Code(s): R13.10 - DYSPHAGIA, UNSPECIFIED Qualifiers: Dysphagia type: unspecified Qualified Code(s): R13.10 - Dysphagia, unspecified (2) Dementia Code(s): F03.90 - UNSPECIFIED DEMENTIA WITHOUT BEHAVIORAL DISTURBANCE (3) HTN (hypertension) Code(s): I10 - ESSENTIAL (PRIMARY) HYPERTENSION (4) CVA, old, alterations of sensations Code(s): I69.398 - OTHER SEQUELAE OF CEREBRAL INFARCTION; R20.9 - UNSPECIFIED DISTURBANCES OF SKIN SENSATION (5) Atrial fibrillation Code(s): I48.91 - UNSPECIFIED ATRIAL FIBRILLATION
--- NOTE | 2019-01-03 11:11 | PN ---
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, MANAGER OF HEALTH - Note 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: Selected Entries 01/02/19 01/02/19 01/02/19 06:16 10:00 14:26 Breakfast Temperature 97.7 F 98.1 F 98.7 F 01/02/19 01/02/19 01/03/19 17:16 22:00 01:35 Breakfast Temperature 97.7 F 98.2 F 97.9 F 01/03/19 01/03/19 05:58 10:18 Breakfast 50% Temperature 97.7 F Laboratory Tests 01/03/19 06:15 WBC 6.3 GLOBAL PRESIDENT reports pt not accepting liquids, requires much encouragement. Tolerating diet without cough/congestion. Per PMD who follows pt [facility], pt has been losing weight. Pt receiving Ensure Compact/magic cup.
--- NOTE | 2019-01-03 11:35 | CON.CARD ---
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 Hx choking while eating. Treating here for aspiration PNA. Episode of tachycardia after neb treatment, EKG showed afib with RVR. Patient was started on metoprolol and xarelto. No chest pain, palps , dizziness, lightheadedness. 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 History of Recent Travel: No Home Medications - Allergies Allergies/Adverse Reactions: Allergies Allergy/AdvReac Type Severity Reaction Status Date / Time No Known Allergies Allergy Verified 12/28/18 14:43 - Home Medications Home Medications: Ambulatory Orders Aripiprazole [Abilify] 2.5 mg PO BID 12/28/18 Ascorbic Acid [Vitamin C] 500 mg PO BID 12/28/18 Baclofen 10 mg PO TID 12/28/18 Clopidogrel Bisulfate [Plavix] 75 mg PO DAILY 12/28/18 Cyanocobalamin [Vitamin B12 -] 1,000 mcg PO DAILY 12/28/18 Docusate Sodium [Colace] 200 mg PO BID 12/28/18 Duloxetine HCl [Cymbalta -] 60 mg PO BID 12/28/18 Escitalopram Oxalate [Lexapro -] 20 mg PO DAILY 12/28/18 Gabapentin [Neurontin -] 800 mg PO Q8H 12/28/18 Gabapentin [Neurontin] 100 mg PO TID 12/28/18 Lisinopril [Zestril] 5 mg PO DAILY 12/28/18 Loratadine 10 mg PO DAILY 12/28/18 Methimazole [Tapazole -] 5 mg PO TID 12/28/18 Multivitamins [Tab-A-Vit -] 1 tab PO DAILY 12/28/18 Simvastatin [Zocor -] 20 mg PO HS 12/28/18 Travoprost [Travatan Z] 5 ml OU HS 12/28/18 Family Disease History - Family Disease History Family History: Unremarkable Review of Systems - Review of Systems Constitutional: reports: No Symptoms Eyes: reports: No Symptoms HENT: reports: No Symptoms Neck: reports: No Symptoms Cardiovascular: reports: No Symptoms Respiratory: reports: No Symptoms Gastrointestinal: reports: No Symptoms Genitourinary: reports: No Symptoms Musculoskeletal: reports: No Symptoms Integumentary: reports: No Symptoms Neurological: reports: No Symptoms Endocrine: reports: No Symptoms Hematology/Lymphatic: reports: No Symptoms Psychiatric: reports: No Symptoms Vital Signs: Vital Signs Temperature 97.7 F 01/03/19 05:58 Pulse Rate 77 01/03/19 05:58 Respiratory Rate 20 01/03/19 05:58 Blood Pressure 148/87 01/03/19 05:58 O2 Sat by Pulse Oximetry (%) 98 01/02/19 21:00 Constitutional: Yes: Well Nourished, No Distress, Calm Eyes: Yes: Conjunctiva Clear, EOM Intact HENT: Yes: Atraumatic, Normocephalic Neck: Yes: Supple, Trachea Midline Respiratory: Yes: Regular, CTA Bilaterally Gastrointestinal: Yes: Normal Bowel Sounds, Soft Cardiovascular: Yes: Tachycardia, Pulse Irregular JVD: No Carotid Bruit: No PMI: Non-Displaced Heart Sounds: Yes: S1, S2 Musculoskeletal: No: Back Pain Extremities: No: Cold Edema: No Peripheral Pulses WNL: No Peripheral Pulses: 1+ Left Doralis Pedis, 1+ Right Dorsalis Pedis Integumentary: No: Jaundice Neurological: Yes: Alert Psychiatric: No: Agitated - Other Data Labs, Other Data: CBC, BMP 01/03/19 06:15 01/03/19 06:15 INR, PTT INR 1.12 (0.83-1.09) H 12/28/18 15:21 Assessment/Plan EKG admission: sinus, old ant infarct EKG 01/03 afib with RVR 155 bpm, nonspecific ST/T wave abnormality Afib with RVR - new diagnosis - agree with transfer to [facility] to monitor rate - continue metoprolol, uptitrate as tolerated - echo ordered - [facility] 6 - now on xarelto dysphagia, aspiration - manage per primary HTN - had low BPs, holding lisinopril here CVA - cont statin, xarelto dementia - manage per primary
--- NOTE | 2019-01-03 14:32 | PN ---
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 (short form) - Note 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: PULMONARY Found to be in new onset atrial fibrillation with RVR. Vital Signs Period Temp Pulse Resp BP Sys/Ogden Pulse Ox Last 24 Hr 97.7 F-98.2 F 65-150 18-20 120-148/67-87 95-98 Gen: NAD at rest Heart: RRR Lung: decreased breath sounds at the bases Abd: soft, nontender Ext: no edema CBC, BMP 01/03/19 06:15 01/03/19 06:15 Active Medications Amoxicillin/Clavulanate Potassium (Augmentin 250 Mg/5 Ml Oral Suspension -) 500 mg PO TIDCM [facility] Last Admin: 01/03/19 11:51 Dose: 5 ml Sodium Chloride (Normal Saline -) 1,000 mls @ 75 mls/hr IV ASDIR [facility] Last Admin: 01/03/19 09:31 Dose: 75 mls/hr Ipratropium [place] (Atrovent 0.02% Nebulizer -) 1 amp NEB RQID [facility] Last Admin: 01/03/19 11:36 Dose: 1 amp Metoprolol Tartrate (Lopressor -) 25 mg PO BID [facility] Metoprolol Tartrate (Lopressor Injection -) 5 mg IVPUSH Q4H PRN PRN Reason: TACHYCARDIA Rivaroxaban (Xarelto) 20 mg PO DAILY@1800 [facility] Last Admin: 01/02/19 23:38 Dose: 20 mg A/P New Onset Atrial Fibrillation with RVR Pneumonia likely Aspiration Sepsis improving HTN Dementia - rate control - anticoagulation per cardiology - continue antibiotics - aspiration precautions - PO as tolerated - DVT prophylaxis
--- NOTE | 2019-01-03 15:17 | ECHO ---
Name: FRANCISCO JAVIER RUBALCAVA Exam:Adult Echocardiogram Study Date: 01/03/2019 01:37 PM Age: 78 yrs Reason For Study: A-Fib Height: 72 in Weight: 178 lb BSA: 2.0 m2 MMode/2D Measurements & Calculations IVSd: 0.96 cm Ao root diam: 3.4 cm LVIDd: 4.0 cm LA dimension: 3.1 cm LVIDs: 2.6 cm LVPWd: 1.1 cm EDV(Teich): 71.1 ml LVOT diam: 2.0 cm ESV(Teich): 24.9 ml LAV (MOD-bp): 57.2 ml Doppler Measurements & Calculations MV E max bassem: 97.5 cm/sec Ao V2 max: 340.1 cm/sec MV A max bassem: 117.4 cm/sec Ao max P.3 mmHg MV E/A: 0.83 Ao V2 mean: 219.6 cm/sec MV dec time: 0.13 sec Ao mean P.3 mmHg Ao V2 VTI: 72.7 cm SANIYA(I,D): 0.71 cm2 AI P1/2t: 321.6 msec SANIYA(V,D): 0.65 cm2 AI max bassem: 292.6 cm/sec LV V1 max P.9 mmHg AI max P.9 mmHg LV V1 mean P.2 mmHg AI dec slope: 266.5 cm/sec2 LV V1 max: 68.4 cm/sec LV V1 mean: 52.5 cm/sec LV V1 VTI: 15.9 cm MR max bassem: 365.7 cm/sec SV(LVOT): 51.8 ml MR max P.7 mmHg TR max bassem: 243.0 cm/sec PA V2 max: 78.7 cm/sec TR max P.7 mmHg PA max P.5 mmHg Med Peak E' Bassem: 5.9 cm/sec Med E/e': 16.6 Lat Peak E' Bassem: 6.1 cm/sec Lat E/e': 16.0 Procedure A two-dimensional transthoracic echocardiogram with color flow and Doppler was performed. Left Ventricle The left ventricular size, thickness and function are normal. The left ventricular ejection fraction is normal. E/A reversal consistent with but not diagnostic of poor LV compliance. Septal motion is consi stent with conduction abnormality. Mitral Valve The mitral valve is not well visualized. There is moderate to severe mitral valve thickening. Calcifi ed mitral apparatus. Cannot r/o Mitral Stenosis. There is mild mitral regurgitation. Tricuspid Valve There is mild tricuspid valve thickening. There is no tricuspid stenosis. There is moderate tricuspid regurgitation. Right ventricular systolic pressure is normal. Aortic Valve The aortic valve is not well visualized. There is moderate to severe aortic valve thickening. There i s moderate to severe aortic sclerosis.;. Moderate valvular aortic stenosis. Moderate aortic regurgitati on. Pulmonic Valve The pulmonic valve is not well visualized. Great Vessels The aortic root is normal size. Pericardium/Pleura There is no pericardial effusion. Interpretation Summary The left ventricular size, thickness and function are normal The left ventricular ejection fraction is normal. Septal motion is consistent with conduction abnormality. The aortic valve is not well visualized. Moderate aortic regurgitation. Moderate valvular aortic stenosis. Right ventricular systolic pressure is normal. There is moderate to severe aortic sclerosis.; There is moderate to severe aortic valve thickening. There is moderate tricuspid regurgitation. E/A reversal consistent with but not diagnostic of poor LV compliance There is moderate to severe mitral valve thickening. Calcified mitral apparatus. Cannot r/o Mitral Stenosis There is mild mitral regurgitation. MD Bernard Goncalves 01/03/2019 03:17 PM
--- NOTE | 2019-01-03 15:29 | EKG ---
Test Reason : Blood Pressure : / mmHG Vent. Rate : 155 BPM Atrial Rate : 131 BPM P-R Int : 000 ms QRS Dur : 114 ms QT Int : 316 ms P-R-T Axes : 000 -17 184 degrees QTc Int : 507 ms ATRIAL FIBRILLATION WITH RAPID VENTRICULAR RESPONSE NONSPECIFIC INTRAVENTRICULAR CONDUCTION DEFECT CANNOT RULE OUT INFERIOR INFARCT , AGE UNDETERMINED ANTERIOR INFARCT (CITED ON OR BEFORE 28-DEC-2018) ABNORMAL ECG WHEN COMPARED WITH ECG OF 28-DEC-2018 16:00, SIGNIFICANT CHANGES HAVE OCCURRED Confirmed by FAISAL SOLER, DEYA ([id number]) on 01/03/2019 3:29:29 PM Referred By: Wayne KIDD Confirmed By:DEYA MALONE MD
[2019-01-03] MEDS ORDERED: PT OWN MED DRAWER 7, Y5N ONE (17:29)
[2019-01-03] MEDS: RIVAROXABAN 20 MG TABLET PO SCH (17:42)
[2019-01-03] MEDS ORDERED: METOPROLOL TARTRATE 25 MG TABLET (FP) PO SCH (22:00)
[2019-01-04] MEDS: IPRATROPIUM BR 0.02% 0.5 MG/2.5 ML VIAL.NEB. NEB SCH ×4 (07:38→20:36)
[2019-01-04] MEDS ORDERED: METOPROLOL TARTRATE 25 MG TABLET (FP) PO SCH ×2 (10:46→22:00)
--- NOTE | 2019-01-04 10:46 | PN ---
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 (short form) - Note 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: s: no cp sob palps dizzy o: Vital Signs Period Temp Pulse Resp BP Sys/Ogden Pulse Ox Last 24 Hr 97.5 F-99.2 F 70-82 18-22 120-149/67-86 96-97 Constitutional: Yes: Well Nourished, No Distress, Calm Eyes: Yes: Conjunctiva Clear Respiratory: Yes: Regular, CTA Bilaterally Gastrointestinal: Yes: Normal Bowel Sounds, Soft Cardiovascular: Yes: rrr JVD: No Carotid Bruit: No Heart Sounds: Yes: S1, S2 Extremities: No: Cold Edema: No Peripheral Pulses: 1+ Left Doralis Pedis, 1+ Right Dorsalis Pedis Integumentary: No: Jaundice diaphoresis Neurological: Yes: Alert Psychiatric: No: Agitated Current Medications Generic Name Dose Route Start Last Admin Trade Name Freq PRN Reason Stop Dose Admin Amoxicillin/Clavulanate Potassium 500 mg 01/02/19 17:30 01/03/19 17:42 Augmentin 250 Mg/5 Ml Oral Suspension - PO 5 ml TIDCM RUFINO Administration Sodium Chloride 1,000 mls @ 75 mls/hr 12/30/18 16:06 01/03/19 16:12 Normal Saline - IV 75 mls/hr ASDIR RUFINO Administration Ipratropium [place] 1 amp 01/03/19 08:00 01/04/19 07:38 Atrovent 0.02% Nebulizer - NEB 1 amp RQID RUFINO Administration Metoprolol Tartrate 5 mg 01/03/19 11:30 Lopressor Injection - IVPUSH Q4H PRN TACHYCARDIA Metoprolol Tartrate 50 mg 01/04/19 10:46 Lopressor - PO BID RUFINO Metoprolol Tartrate 25 mg 01/04/19 10:47 Lopressor - PO 01/04/19 10:48 ONCE ONE Rivaroxaban 20 mg 01/02/19 18:00 01/03/19 17:42 Xarelto PO 20 mg DAILY@1800 RUFION Administration CBC, BMP 01/03/19 06:15 01/03/19 06:15 Assessment/Plan EKG admission: sinus, 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 will increase lopressor to 50 bid. cont tele. - [facility] 6 - now on xarelto - tele reported VT/VF 01/04-->was artifact dysphagia, aspiration - manage per primary HTN - stable on bb CVA - cont statin, xarelto
[2019-01-04] MEDS ORDERED: METOPROLOL TARTRATE 25 MG TABLET (FP) PO ONE (10:47)
[2019-01-04] MEDS: AMOX TR/POTASSIUM CLAVULANATE 250 MG/5 ML BOTTLE PO SCH ×3 (11:06→17:22)
--- NOTE | 2019-01-04 11:45 | PN ---
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 (short form) - Note 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: Resting in NAD. Awake but confused. No acute events overnight. Intake & Output 01/01/19 01/02/19 01/03/19 01/04/19 23:59 23:59 23:59 23:59 Intake Total 2375 873 081 3546 Output Total 1100 750 Balance 1275 -511 925 7144 Weight 178 lb Last Vital Signs Temp Pulse Resp BP Pulse Ox 98.8 F 72 18 140/71 96 01/04/19 08:39 01/04/19 08:39 01/04/19 08:39 01/04/19 08:39 01/03/19 21:00 Active Medications Amoxicillin/Clavulanate Potassium (Augmentin 250 Mg/5 Ml Oral Suspension -) 500 mg PO TIDCM [facility] Last Admin: 01/04/19 11:06 Dose: 5 ml Sodium Chloride (Normal Saline -) 1,000 mls @ 75 mls/hr IV ASDIR [facility] Last Admin: 01/03/19 16:12 Dose: 75 mls/hr Ipratropium [place] (Atrovent 0.02% Nebulizer -) 1 amp NEB RQID [facility] Last Admin: 01/04/19 11:29 Dose: 1 amp Metoprolol Tartrate (Lopressor Injection -) 5 mg IVPUSH Q4H PRN PRN Reason: TACHYCARDIA Metoprolol Tartrate (Lopressor -) 50 mg PO BID [facility] Rivaroxaban (Xarelto) 20 mg PO DAILY@1800 [facility] Last Admin: 01/03/19 17:42 Dose: 20 mg Gen: NAD at rest Heart: RRR Lung: decreased breath sounds at the bases, scattered rhonchi Abd: soft, nontender Ext: no edema A/P Aspiration Pneumonitis Sepsis improved HTN Dementia ABX Per ID Aspiration precautions PO as tolerated VTE prophylaxis Dr Anderson
[2019-01-04] MEDS ORDERED: POTASSIUM CHLORIDE TABS 20 MEQ TABLET.ER (FP) PO ONE (12:09)
--- NOTE | 2019-01-04 12:09 | PN ---
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, SUPERVISOR WRAPPING ROOM - Note 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: Selected Entries 01/02/19 01/02/19 01/03/19 14:26 22:00 01:35 Breakfast 25% 25% Lunch 25% 25% Supper Temperature 97.9 F Blood Pressure 01/03/19 01/03/19 01/03/19 05:58 09:30 10:18 Breakfast 50% Lunch Supper Temperature 97.7 F 98.1 F Blood Pressure 01/03/19 01/03/19 01/03/19 13:26 16:21 17:00 Breakfast Lunch Supper 50% Temperature 97.7 F 99.2 F 98.0 F Blood Pressure 01/03/19 01/04/19 01/04/19 22:00 02:00 06:00 Breakfast Lunch Supper Temperature 98.3 F Blood Pressure 132/73 140/86 01/04/19 08:39 Breakfast Lunch Supper Temperature Blood Pressure 140/71 Laboratory Tests 01/02/19 01/03/19 06:00 06:15 WBC 6.2 6.3 Pt tolerating diet, fed by CATHODE [employer]VAGE PROCESSOR. Pt now on Telemetry. Reviewed compensatory swallowing recommendations of small bites, chin tuck, multiple hard swallows followed by liquid to clear pharyngeal hang-up. STM is impaired. Pt is dependent on continuous verbal cues by rd scientist to manage PO intake safely at this time. Pt is doing well so far. Monitor PO tolerance. Pt will benefit from continued dysphagia tx upon d/c at [facility].
--- NOTE | 2019-01-04 12:38 | PN ---
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 (short form) - Note 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: transfered to telemetry new onset A fib c RVR / inc rate probably associated with nebulizer treatment good response to BB Patient asymptomatic last night per nursing no distress / comfortable today was able to eat yesterday over 50% awake and alert Vital Signs Period Temp Pulse Resp BP Sys/Ogden Pulse Ox Last 24 Hr 97.5 F-99.2 F 70-82 18-22 120-149/67-86 95-97 Vital Signs Period Temp Pulse Resp BP Sys/Ogden Pulse Ox Last 24 Hr 97.7 F-98.7 F 65-145 20-20 110-148/58-87 98 voices no c/o neck -jvd heart S1/S2 lungs grossly clear abd soft non tender ext -edema CBC, [facility] 01/03/19 06:15 01/03/19 06:15 CBC, [facility] 01/02/19 06:00 01/02/19 06:00 CXR bibasilar infiltrates -- ?? possibly ateletasis + blood c/s Microbiology 12/29/18 02:50 Blood - Peripheral Venous Blood Culture - Final NO GROWTH AFTER 5 DAYS INCUBATION 12/28/18 15:21 Blood - Peripheral Venous Blood Culture - Final NO GROWTH AFTER 5 DAYS INCUBATION 12/28/18 15:21 Blood - Peripheral Venous Blood Culture - Final NO GROWTH AFTER 5 DAYS INCUBATION 12/29/18 02:50 Blood - Peripheral Venous Blood Culture - Final Staphylococcus Epidermidis 12/29/18 17:00 Urine - Urine Gibson Urine Culture - Final NO GROWTH OBTAINED Active Medications Amoxicillin/Clavulanate Potassium (Augmentin 250 Mg/5 Ml Oral Suspension -) 500 mg PO TIDCM [facility] Last Admin: 01/04/19 11:06 Dose: 5 ml Sodium Chloride (Normal Saline -) 1,000 mls @ 75 mls/hr IV ASDIR [facility] Last Admin: 01/03/19 16:12 Dose: 75 mls/hr Ipratropium [place] (Atrovent 0.02% Nebulizer -) 1 amp NEB RQID [facility] Last Admin: 01/04/19 11:29 Dose: 1 amp Magnesium Chloride (Slow-Mag -) 64 mg PO DAILY [facility] Metoprolol Tartrate (Lopressor Injection -) 5 mg IVPUSH Q4H PRN PRN Reason: TACHYCARDIA Metoprolol Tartrate (Lopressor -) 50 mg PO BID [facility] Rivaroxaban (Xarelto) 20 mg PO DAILY@1800 [facility] Last Admin: 01/03/19 17:42 Dose: 20 mg 77yo M with PMH of HTN, HLD, 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 Per [place] report, patient "choked" six times in the past month while eating. He is on a pureed diet with allowances for a mechanical soft diet. Patient became hypotensive and not responded to IV bolus and was transferred to ICU. DUring ICU stay BP improved and did not require pressors for BP support. He is on medical martinez - clinically stable Discussed with Nursing at [facility] - he will not allow feeding tube, so will try PO cautiously. Patient with new onset A fib with RVR while on medical martinez -- transferred to telemetry for monitor and rate control # tachyxcardia / a fib a fib with RVR associated with B agoinst treatment tolerated Metolprolol -- will continue BID and titrate up as needed and tolerated for rate control started on xarelto 01/02/ Cardio consult appreciated telemetry to monitor rate #Dysphagia toleratnig feeds aspitration precautions Chext xray reviewed and neg for aspiration ? babsilar infiltrates ?? atelectasis not febrile / no Leukocytes / no cough # Hypokalemia replace lytes - keep K >4 / Mag >2 #Hypotension s/p multiple IV boluses NS- transfered to ICU but did not require pressors currently in medical martinez with stable bp continue to monitor #CVA Lt sided weakness # Neuropathy / chronic pain LE continue home meds Problem List - Problems (1) Dysphagia Code(s): R13.10 - DYSPHAGIA, UNSPECIFIED Qualifiers: Dysphagia type: unspecified Qualified Code(s): R13.10 - Dysphagia, unspecified (2) Dementia Code(s): F03.90 - UNSPECIFIED DEMENTIA WITHOUT BEHAVIORAL DISTURBANCE (3) HTN (hypertension) Code(s): I10 - ESSENTIAL (PRIMARY) HYPERTENSION (4) CVA, old, alterations of sensations Code(s): I69.398 - OTHER SEQUELAE OF CEREBRAL INFARCTION; R20.9 - UNSPECIFIED DISTURBANCES OF SKIN SENSATION (5) Atrial fibrillation Code(s): I48.91 - UNSPECIFIED ATRIAL FIBRILLATION
[2019-01-04] MEDS: MAGNESIUM CL 64 MG TABLET.SA PO SCH (12:50)
[2019-01-04] MEDS: METOPROLOL TARTRATE 5 MG/5 ML VIAL IVPUSH PRN (17:18)
[2019-01-04] MEDS: RIVAROXABAN 20 MG TABLET PO SCH (17:22)
[2019-01-04] MEDS: SODIUM CHLORIDE 1,000 ML IV SCH (17:22)
[2019-01-05 07:05] LABS: BASO % 0.7 % (0-2.0); EOS % 4.2 % (0-4.5); HEMATOCRIT 36.4 % (35.4-49); HEMOGLOBIN 12.4 GM/dL (11.7-16.9); LYMPH % 12.7 % (8-40); MCH 31.3 pg (25.7-33.7); MCHC 34.1 g/dl (32.0-35.9); MEAN CELL VOLUME 91.9 fl (80-96); MEAN PLT VOLUME 8.6 fl (7.5-11.1); MONO % 8.4 % (3.8-10.2); PLATELET COUNT 223 K/MM3 (134-434); RBC 3.97 M/mm3 (4.00-5.60); RDW 13.5 % (11.9-15.9); WHITE BLOOD COUNT 7.9 K/mm3 (4.0-10.0)
[2019-01-05 07:22] LABS: CALCIUM 8.3 mg/dL (8.5-10.1); CREATININE 0.5 mg/dL (0.55-1.3); MAGNESIUM 2.1 mg/dL (1.8-2.4); POTASSIUM 3.8 mmol/L (3.5-5.1)
[2019-01-05] MEDS: IPRATROPIUM BR 0.02% 0.5 MG/2.5 ML VIAL.NEB. NEB SCH ×4 (07:30→20:30)
[2019-01-05] MEDS ORDERED: PT OWN MED DRAWER 7, Y5N ONE ×2 (08:56→10:07)
--- NOTE | 2019-01-05 09:44 | PN ---
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, Physician Chief Complaint: no distress TELE: NSR, runs of PAF 130s, self limited - Current Medication List Current Medications: Active Medications Amoxicillin/Clavulanate Potassium (Augmentin 250 Mg/5 Ml Oral Suspension -) 500 mg PO TIDCM [facility] Last Admin: 01/04/19 17:22 Dose: 5 ml Sodium Chloride (Normal Saline -) 1,000 mls @ 75 mls/hr IV ASDIR [facility] Last Admin: 01/04/19 17:22 Dose: 75 mls/hr Ipratropium [place] (Atrovent 0.02% Nebulizer -) 1 amp NEB RQID [facility] Last Admin: 01/05/19 07:30 Dose: 1 amp Magnesium Chloride (Slow-Mag -) 64 mg PO DAILY [facility] Last Admin: 01/04/19 12:50 Dose: 64 mg Metoprolol Tartrate (Lopressor Injection -) 5 mg IVPUSH Q4H PRN PRN Reason: TACHYCARDIA Last Admin: 01/04/19 17:18 Dose: 5 mg Metoprolol Tartrate (Lopressor -) 50 mg PO BID [facility] Last Admin: 01/04/19 22:21 Dose: 50 mg Rivaroxaban (Xarelto) 20 mg PO DAILY@1800 [facility] Last Admin: 01/04/19 17:22 Dose: 20 mg - Objective Vital Signs: Vital Signs Temperature 97.6 F 01/05/19 05:21 Pulse Rate 78 01/05/19 05:21 Respiratory Rate 20 01/05/19 05:21 Blood Pressure 154/77 01/05/19 05:21 O2 Sat by Pulse Oximetry (%) 98 01/04/19 21:00 Constitutional: Yes: No Distress Cardiovascular: Yes: Pulse Irregular Respiratory: Yes: CTA Bilaterally Gastrointestinal: Yes: Soft Edema: No Neurological: Yes: Alert, Oriented ...Motor Strength: WNL Labs: CBC, BMP 01/05/19 06:10 01/05/19 06:10 INR, PTT INR 1.12 (0.83-1.09) H 12/28/18 15:21 Laboratory Tests 01/05/19 01/05/19 06:10 06:10 WBC 7.9 Hgb 12.4 Plt Count 223 Sodium 143 Potassium 3.8 Creatinine 0.5 L Magnesium 2.1 - ....Imaging EKG: Image Reviewed Assessment/Plan Assessment/Plan EKG admission: sinus, 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 will increase lopressor to 75 bid. cont tele. - CHADSVasc 6 - now on xarelto - tele reported VT/VF 01/04-->was artifact dysphagia, aspiration - manage per primary HTN - stable on bb CVA - cont statin, xarelto
[2019-01-05] MEDS: METOPROLOL TARTRATE 50 MG TABLET (FP) PO SCH ×2 (10:07→21:36)
[2019-01-05] MEDS: MAGNESIUM CL 64 MG TABLET.SA PO SCH (10:08)
--- NOTE | 2019-01-05 11:42 | PN ---
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 (short form) - Note 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: 78 y/o male found lying in bed. C/o not doing well. States "I am not doing anything here and want to go home". Vital Signs Period Temp Pulse Resp BP Sys/Ogden Pulse Ox Last 24 Hr 97.6 F-98.6 F 65-134 16-20 119-154/66-90 98 CBC, BMP 01/05/19 06:10 01/05/19 06:10 HEENT- NL Neck- Supple Lungs- CTAB Heart- S1/S2 Abd- Soft, Nt Ext- No LE edema Active Medications Amoxicillin/Clavulanate Potassium (Augmentin 250 Mg/5 Ml Oral Suspension -) 500 mg PO TIDCM [facility] Sodium Chloride (Normal Saline -) 1,000 mls @ 75 mls/hr IV ASDIR [facility] Ipratropium [place] (Atrovent 0.02% Nebulizer -) 1 amp NEB RQID [facility] Last Admin: 01/05/19 11:23 Dose: 1 amp Magnesium Chloride (Slow-Mag -) 64 mg PO DAILY [facility] Last Admin: 01/05/19 10:08 Dose: 64 mg Metoprolol Tartrate (Lopressor Injection -) 5 mg IVPUSH Q4H PRN PRN Reason: TACHYCARDIA Last Admin: 01/04/19 17:18 Dose: 5 mg Metoprolol Tartrate (Lopressor -) 75 mg PO BID [facility] Last Admin: 01/05/19 10:07 Dose: 75 mg Rivaroxaban (Xarelto) 20 mg PO DAILY@1800 [facility] # tachycardia / a fib a fib with RVR Cont xarelto Cardio consult appreciated- Metoprolol titrated up telemetry to monitor rate #Dysphagia states not hungry maintain aspiration precautions Chest xray reviewed and neg for aspiration ? babsilar infiltrates ?? atelectasis not febrile / no Leukocytes / no cough # Hypokalemia replace lytes - keep K >4 / Mag >2 Mag 2.1- cont Magnesium k 3.8- Potassium ordered #Hypotension s/p multiple IV boluses NS- transferred to ICU- pressors not needed currently on telemetry- stable bp continue to monitor #CVA Lt sided weakness # Neuropathy / chronic pain LE continue home meds Problem List - Problems (1) Dysphagia Code(s): R13.10 - DYSPHAGIA, UNSPECIFIED Qualifiers: Dysphagia type: unspecified Qualified Code(s): R13.10 - Dysphagia, unspecified (2) Dementia Code(s): F03.90 - UNSPECIFIED DEMENTIA WITHOUT BEHAVIORAL DISTURBANCE (3) HTN (hypertension) Code(s): I10 - ESSENTIAL (PRIMARY) HYPERTENSION (4) CVA, old, alterations of sensations Code(s): I69.398 - OTHER SEQUELAE OF CEREBRAL INFARCTION; R20.9 - UNSPECIFIED DISTURBANCES OF SKIN SENSATION (5) Atrial fibrillation Code(s): I48.91 - UNSPECIFIED ATRIAL FIBRILLATION
[2019-01-05] MEDS ORDERED: POTASSIUM CHLORIDE TABS 20 MEQ TABLET.ER (FP) PO ONE (11:56)
--- NOTE | 2019-01-05 12:15 | PN ---
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, PATIENT OBSERVATION ASSISTANT - Note 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: Selected Entries 01/02/19 01/02/19 01/03/19 14:26 22:00 01:35 Breakfast 25% 25% Lunch 25% 25% Supper Temperature 97.9 F Blood Pressure 01/03/19 01/03/19 01/03/19 05:58 09:30 10:18 Breakfast 50% Lunch Supper Temperature 97.7 F 98.1 F Blood Pressure 01/03/19 01/03/19 01/03/19 13:26 16:21 17:00 Breakfast Lunch Supper 50% Temperature 97.7 F 99.2 F 98.0 F Blood Pressure 01/03/19 01/04/19 01/04/19 22:00 02:00 06:00 Breakfast Lunch Supper Temperature 98.3 F Blood Pressure 132/73 140/86 01/04/19 08:39 Breakfast Lunch Supper Temperature Blood Pressure 140/71 Laboratory Tests 01/02/19 01/03/19 06:00 06:15 WBC 6.2 6.3 Selected Entries 01/04/19 01/04/19 01/04/19 02:00 06:00 08:39 Breakfast Lunch Supper Temperature 97.7 F 97.5 F L 98.8 F 01/04/19 01/04/19 01/04/19 14:00 18:00 19:28 Breakfast 25% Lunch 50% Supper 50% Temperature 98.4 F 98.2 F 01/04/19 01/05/19 22:00 10:00 Breakfast 25% Lunch Supper Temperature 98.4 F Laboratory Tests 01/05/19 06:10 WBC 7.9 Fed by INHALATION THERAPY AIDE. Refused breakfast,only accepting 1/2 Ensure. Reviewed compensatory swallowing recommendations of small bites, chin tuck, multiple hard swallows followed by liquid to clear pharyngeal hang-up. STM is impaired. Pt is dependent on continuous verbal cues by debone supervisor to manage PO intake safely at this time. Monitor PO tolerance and acceptance. Consider appetite stimulant? Pt will benefit from continued dysphagia tx upon d/c at [facility].
[2019-01-05] MEDS: SODIUM CHLORIDE 1,000 ML IV SCH (12:24)
[2019-01-05] MEDS: AMOX TR/POTASSIUM CLAVULANATE 250 MG/5 ML BOTTLE PO SCH ×3 (12:25→17:04)
--- NOTE | 2019-01-05 12:26 | PN ---
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 (short form) - Note 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: PULMONARY Resting in NAD No acute events overnight. VSS/AFEBRILE Gen: NAD at rest Heart: RRR Lung: decreased breath sounds at the bases, scattered rhonchi Abd: soft, nontender Ext: no edema LABS/MEDS/NOTES/IMAGES NOTED A/P Aspiration Pneumonitis Sepsis improved HTN Dementia ABX Per ID Aspiration precautions PO as tolerated VTE prophylaxis Deandra MCDANIELS MD
[2019-01-05] MEDS: RIVAROXABAN 20 MG TABLET PO SCH (17:04)
[2019-01-06] MEDS: METOPROLOL TARTRATE 5 MG/5 ML VIAL IVPUSH PRN ×3 (03:47→13:21)
[2019-01-06] MEDS: METOPROLOL TARTRATE 50 MG TABLET (FP) PO SCH ×3 (07:33→21:53)
[2019-01-06] MEDS: AMOX TR/POTASSIUM CLAVULANATE 250 MG/5 ML BOTTLE PO SCH ×3 (07:35→17:19)
[2019-01-06 07:37] LABS: BLOOD UREA NITROGEN 7.5 mg/dL (7-18); CALCIUM 8.1 mg/dL (8.5-10.1); CREATININE 0.5 mg/dL (0.55-1.3); MAGNESIUM 1.8 mg/dL (1.8-2.4); POTASSIUM 3.9 mmol/L (3.5-5.1)
[2019-01-06 07:55] LABS: BASO % 0.6 % (0-2.0); EOS % 3.6 % (0-4.5); HEMATOCRIT 34.2 % (35.4-49); HEMOGLOBIN 11.8 GM/dL (11.7-16.9); LYMPH % 12.6 % (8-40); MCH 31.4 pg (25.7-33.7); MCHC 34.6 g/dl (32.0-35.9); MEAN CELL VOLUME 90.9 fl (80-96); MEAN PLT VOLUME 8.4 fl (7.5-11.1); MONO % 9.1 % (3.8-10.2); NEUT % 74.1 % (42.8-82.8); PLATELET COUNT 254 K/MM3 (134-434); RBC 3.77 M/mm3 (4.00-5.60); RDW 13.5 % (11.9-15.9); WHITE BLOOD COUNT 8.3 K/mm3 (4.0-10.0)
[2019-01-06] MEDS: IPRATROPIUM BR 0.02% 0.5 MG/2.5 ML VIAL.NEB. NEB SCH ×4 (08:17→20:19)
[2019-01-06] MEDS: SODIUM CHLORIDE 1,000 ML IV SCH (10:13)
[2019-01-06] MEDS ORDERED: PT OWN MED DRAWER 7, Y5N ONE (10:17)
[2019-01-06] MEDS: MAGNESIUM CL 64 MG TABLET.SA PO SCH (11:22)
[2019-01-06] MEDS ORDERED: POTASSIUM CHLORIDE TABS 20 MEQ TABLET.ER (FP) PO ONE ×3 (11:50→23:58)
--- NOTE | 2019-01-06 11:50 | PN ---
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 (short form) - Note 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: no chest pain, palps, dizziness, dyspnea tele: runs of afib with RVR 150s, received IV lopressor this AM Current Medications Amoxicillin/Clavulanate Potassium (Augmentin 250 Mg/5 Ml Oral Suspension -) 500 mg PO TIDCM [facility] Last Admin: 01/06/19 07:35 Dose: 500 mg Sodium Chloride (Normal Saline -) 1,000 mls @ 75 mls/hr IV ASDIR [facility] Last Admin: 01/06/19 10:13 Dose: Not Given Ipratropium [place] (Atrovent 0.02% Nebulizer -) 1 amp NEB RQID [facility] Last Admin: 01/06/19 08:17 Dose: 1 amp Magnesium Chloride (Slow-Mag -) 64 mg PO DAILY [facility] Last Admin: 01/06/19 11:22 Dose: 64 mg Metoprolol Tartrate (Lopressor Injection -) 5 mg IVPUSH Q4H PRN PRN Reason: TACHYCARDIA Last Admin: 01/06/19 08:18 Dose: 5 mg Metoprolol Tartrate (Lopressor -) 100 mg PO BID [facility] Rivaroxaban (Xarelto) 20 mg PO DAILY@1800 [facility] Last Admin: 01/05/19 17:04 Dose: 20 mg Vital Signs Period Temp Pulse Resp BP Sys/Ogden Pulse Ox Last 24 Hr 97.9 F-98.5 F 64-155 20-20 128-154/77-91 94 Constitutional: Yes: No Distress Cardiovascular: Yes: Pulse Irregular Respiratory: Yes: CTA Bilaterally Gastrointestinal: Yes: Soft Edema: No Neurological: Yes: Alert, confused ...Motor Strength: WNL no jaundice, diaphoresis not agitated - ....Imaging EKG: Image Reviewed Assessment/Plan EKG admission: sinus, 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 will increase lopressor to 100 mg bid. cont tele. - CHADSVasc 6 - now on xarelto - tele reported VT/VF 01/04-->was artifact dysphagia, aspiration - manage per primary HTN - stable on bb CVA - cont statin, xarelto
--- NOTE | 2019-01-06 11:58 | PN ---
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 (short form) - Note 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: transfered to telemetry new onset A fib c RVR / i good response to BB case discussed with Cardiology Patient asymptomatic telemetry - burst of Afib with RVR BB increased today Vital Signs Period Temp Pulse Resp BP Sys/Ogden Pulse Ox Last 24 Hr 97.9 F-98.5 F 64-155 20-20 128-154/77-91 94 Vital Signs Period Temp Pulse Resp BP Sys/Ogden Pulse Ox Last 24 Hr 97.5 F-99.2 F 70-82 18-22 120-149/67-86 95-97 Vital Signs Period Temp Pulse Resp BP Sys/Ogden Pulse Ox Last 24 Hr 97.7 F-98.7 F 65-145 20-20 110-148/58-87 98 voices no c/o neck -jvd heart S1/S2 lungs grossly clear abd soft non tender ext -edema CBC, BMP 01/06/19 06:14 01/06/19 06:14 CBC, BMP Mag 1.8 01/03/19 06:15 01/03/19 06:15 Microbiology 12/29/18 02:50 Blood - Peripheral Venous Blood Culture - Final NO GROWTH AFTER 5 DAYS INCUBATION 12/28/18 15:21 Blood - Peripheral Venous Blood Culture - Final NO GROWTH AFTER 5 DAYS INCUBATION 12/28/18 15:21 Blood - Peripheral Venous Blood Culture - Final NO GROWTH AFTER 5 DAYS INCUBATION 12/29/18 02:50 Blood - Peripheral Venous Blood Culture - Final Staphylococcus Epidermidis 12/29/18 17:00 Urine - Urine Gibson Urine Culture - Final NO GROWTH OBTAINED Active Medications Amoxicillin/Clavulanate Potassium (Augmentin 250 Mg/5 Ml Oral Suspension -) 500 mg PO TIDCM [facility] Last Admin: 01/06/19 07:35 Dose: 500 mg Sodium Chloride (Normal Saline -) 1,000 mls @ 75 mls/hr IV ASDIR [facility] Last Admin: 01/06/19 10:13 Dose: Not Given Magnesium Sulfate/Dextrose 1 (gm/ Miscellaneous) 100 mls @ 100 mls/hr IVPB ONCE ONE Stop: 01/06/19 12:50 Ipratropium [place] (Atrovent 0.02% Nebulizer -) 1 amp NEB RQID [facility] Last Admin: 01/06/19 08:17 Dose: 1 amp Magnesium Chloride (Slow-Mag -) 64 mg PO DAILY [facility] Last Admin: 01/06/19 11:22 Dose: 64 mg Metoprolol Tartrate (Lopressor Injection -) 5 mg IVPUSH Q4H PRN PRN Reason: TACHYCARDIA Last Admin: 01/06/19 08:18 Dose: 5 mg Metoprolol Tartrate (Lopressor -) 100 mg PO BID [facility] Potassium Chloride (K-Dur -) 40 meq PO ONCE ONE Stop: 01/06/19 11:51 Rivaroxaban (Xarelto) 20 mg PO DAILY@1800 [facility] Last Admin: 01/05/19 17:04 Dose: 20 mg 77yo M with PMH of HTN, HLD, 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 Per [place] report, patient "choked" six times in the past month while eating. He is on a pureed diet with allowances for a mechanical soft diet. Patient became hypotensive and not responded to IV bolus and was transferred to ICU. DUring ICU stay BP improved and did not require pressors for BP support. He is on medical martinez - clinically stable Discussed with Nursing at [facility] - he will not allow feeding tube, so will try PO cautiously. Patient with new onset A fib with RVR while on medical martinez -- transferred to telemetry for monitor and rate control # tachyxcardia / a fib burst of a fib with RVR on tele - required IV BB tolerating Metolprolol -- will continue BID and titrate up as needed and tolerated for rate control started on xarelto 01/02/19 Cardio consult appreciated continue telemetry to monitor rate correct lytes K>4.2 Mag >2.0 #Dysphagia toleratnig feeds aspitration precautions Chext xray reviewed and neg for aspiration ? babsilar infiltrates ?? atelectasis not febrile / no Leukocytes / no cough # Hypokalemia replace lytes - keep K >4 / Mag >2 #Hypotension s/p multiple IV boluses NS- transfered to ICU but did not require pressors currently in medical martinez with stable bp continue to monitor #CVA Lt sided weakness # Neuropathy / chronic pain LE continue home meds Problem List - Problems (1) Dysphagia Code(s): R13.10 - DYSPHAGIA, UNSPECIFIED Qualifiers: Dysphagia type: unspecified Qualified Code(s): R13.10 - Dysphagia, unspecified (2) Dementia Code(s): F03.90 - UNSPECIFIED DEMENTIA WITHOUT BEHAVIORAL DISTURBANCE (3) HTN (hypertension) Code(s): I10 - ESSENTIAL (PRIMARY) HYPERTENSION (4) CVA, old, alterations of sensations Code(s): I69.398 - OTHER SEQUELAE OF CEREBRAL INFARCTION; R20.9 - UNSPECIFIED DISTURBANCES OF SKIN SENSATION (5) Atrial fibrillation Code(s): I48.91 - UNSPECIFIED ATRIAL FIBRILLATION
[2019-01-06] MEDS ORDERED: MAGNESIUM SULF 50% (8.12 MEQ/2 ML-1 GM VIAL) IVPB ONE (12:15)
[2019-01-06] MEDS: RIVAROXABAN 20 MG TABLET PO SCH (17:20)
[2019-01-07 07:22] LABS: BLOOD UREA NITROGEN 7.9 mg/dL (7-18); CREATININE 0.5 mg/dL (0.55-1.3); MAGNESIUM 2.4 mg/dL (1.8-2.4); POTASSIUM 4.5 mmol/L (3.5-5.1)
[2019-01-07 07:29] LABS: BASO % 0.5 % (0-2.0); EOS % 4.1 % (0-4.5); HEMATOCRIT 41.2 % (35.4-49); HEMOGLOBIN 13.7 GM/dL (11.7-16.9); LYMPH % 14.8 % (8-40); MCH 30.4 pg (25.7-33.7); MCHC 33.2 g/dl (32.0-35.9); MEAN CELL VOLUME 91.7 fl (80-96); MEAN PLT VOLUME 8.5 fl (7.5-11.1); MONO % 9.8 % (3.8-10.2); NEUT % 70.8 % (42.8-82.8); RDW 13.4 % (11.9-15.9); WHITE BLOOD COUNT 7.4 K/mm3 (4.0-10.0)
[2019-01-07] MEDS: AMOX TR/POTASSIUM CLAVULANATE 250 MG/5 ML BOTTLE PO SCH ×3 (08:17→17:10)
[2019-01-07 08:24] LABS: PLATELET COUNT 282 K/MM3 (134-434)
[2019-01-07] MEDS: IPRATROPIUM BR 0.02% 0.5 MG/2.5 ML VIAL.NEB. NEB SCH ×4 (08:34→19:31)
[2019-01-07] MEDS: MAGNESIUM CL 64 MG TABLET.SA PO SCH (09:04)
[2019-01-07] MEDS: METOPROLOL TARTRATE 50 MG TABLET (FP) PO SCH ×2 (09:04→21:46)
--- NOTE | 2019-01-07 09:21 | PN ---
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 (short form) - Note 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: PULMONARY Resting in NAD No acute events overnight. VSS/AFEBRILE Gen: NAD at rest Heart: RRR Lung: decreased breath sounds at the bases, scattered rhonchi Abd: soft, nontender Ext: no edema LABS/MEDS/NOTES/IMAGES NOTED CXR reported as improved A/P Aspiration Pneumonitis Sepsis improved HTN Dementia ABX Per ID Aspiration precautions PO as tolerated VTE prophylaxis Deandra MCDANIELS MD
--- NOTE | 2019-01-07 10:57 | PN ---
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 (short form) - Note 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: no chest pain, palps, dizziness, dyspnea tele: brief runs of afib with RVR 150s, sinus Current Medications Amoxicillin/Clavulanate Potassium (Augmentin 250 Mg/5 Ml Oral Suspension -) 500 mg PO TIDCM [facility] Last Admin: 01/07/19 08:17 Dose: 500 mg Sodium Chloride (Normal Saline -) 1,000 mls @ 75 mls/hr IV ASDIR [facility] Last Admin: 01/06/19 10:13 Dose: Not Given Ipratropium [place] (Atrovent 0.02% Nebulizer -) 1 amp NEB RQID [facility] Last Admin: 01/07/19 08:34 Dose: 1 amp Magnesium Chloride (Slow-Mag -) 64 mg PO DAILY [facility] Last Admin: 01/07/19 09:04 Dose: 64 mg Metoprolol Tartrate (Lopressor Injection -) 5 mg IVPUSH Q4H PRN PRN Reason: TACHYCARDIA Last Admin: 01/06/19 13:21 Dose: 5 mg Metoprolol Tartrate (Lopressor -) 100 mg PO BID [facility] Last Admin: 01/07/19 09:04 Dose: 100 mg Rivaroxaban (Xarelto) 20 mg PO DAILY@1800 [facility] Last Admin: 01/06/19 17:20 Dose: 20 mg Vital Signs Period Temp Pulse Resp BP Sys/Ogden Pulse Ox Last 24 Hr 97.9 F-100.0 F 60-148 16-22 134-156/73-92 97-98 Constitutional: Yes: No Distress Cardiovascular: Yes: Pulse Irregular Respiratory: Yes: CTA Bilaterally Gastrointestinal: Yes: Soft Edema: No Neurological: Yes: Alert, confused ...Motor Strength: WNL no jaundice, diaphoresis not agitated - ....Imaging EKG: Image Reviewed Assessment/Plan EKG admission: sinus, 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 cont lopressor 100 mg BID. - CHADSVasc 6 - now on xarelto - tele reported VT/VF 01/04-->was artifact dysphagia, aspiration - manage per primary HTN - stable on bb CVA - cont statin, xarelto
[2019-01-07] MEDS: SODIUM CHLORIDE 1,000 ML IV SCH (11:15)
--- NOTE | 2019-01-07 14:21 | PN ---
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 (short form) - Note 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: transfered to telemetry new onset A fib c RVR / good response to BB case discussed with Cardiology Patient asymptomatic telemetry - burst of Afib with RVR BB increased Vital Signs Period Temp Pulse Resp BP Sys/Ogden Pulse Ox Last 24 Hr 97.9 F-100.0 F 60-89 16-20 140-156/73-92 97-98 Vital Signs Period Temp Pulse Resp BP Sys/Ogden Pulse Ox Last 24 Hr 97.9 F-98.5 F 64-155 20-20 128-154/77-91 94 Vital Signs Period Temp Pulse Resp BP Sys/Ogden Pulse Ox Last 24 Hr 97.5 F-99.2 F 70-82 18-22 120-149/67-86 95-97 voices no c/o neck -jvd heart S1/S2 lungs grossly clear abd soft non tender ext -edema CBC, BMP 01/07/19 06:10 01/07/19 06:10 Mag 2.4 CBC, BMP 01/06/19 06:14 01/06/19 06:14 CBC, BMP Mag 1.8 01/03/19 06:15 01/03/19 06:15 CXR findings more consistent with atelectasis Microbiology 12/29/18 02:50 Blood - Peripheral Venous Blood Culture - Final NO GROWTH AFTER 5 DAYS INCUBATION 12/28/18 15:21 Blood - Peripheral Venous Blood Culture - Final NO GROWTH AFTER 5 DAYS INCUBATION 12/28/18 15:21 Blood - Peripheral Venous Blood Culture - Final NO GROWTH AFTER 5 DAYS INCUBATION 12/29/18 02:50 Blood - Peripheral Venous Blood Culture - Final Staphylococcus Epidermidis 12/29/18 17:00 Urine - Urine Gibson Urine Culture - Final NO GROWTH OBTAINED Active Medications Amoxicillin/Clavulanate Potassium (Augmentin 250 Mg/5 Ml Oral Suspension -) 500 mg PO TIDCM [facility] Last Admin: 01/07/19 11:16 Dose: 500 mg Sodium Chloride (Normal Saline -) 1,000 mls @ 75 mls/hr IV ASDIR [facility] Last Admin: 01/07/19 11:15 Dose: 75 mls/hr Ipratropium [place] (Atrovent 0.02% Nebulizer -) 1 amp NEB RQID [facility] Last Admin: 01/07/19 08:34 Dose: 1 amp Magnesium Chloride (Slow-Mag -) 64 mg PO DAILY [facility] Last Admin: 01/07/19 09:04 Dose: 64 mg Metoprolol Tartrate (Lopressor Injection -) 5 mg IVPUSH Q4H PRN PRN Reason: TACHYCARDIA Last Admin: 01/06/19 13:21 Dose: 5 mg Metoprolol Tartrate (Lopressor -) 100 mg PO BID [facility] Last Admin: 01/07/19 09:04 Dose: 100 mg Rivaroxaban (Xarelto) 20 mg PO DAILY@1800 [facility] Last Admin: 01/06/19 17:20 Dose: 20 mg 77yo M with PMH of HTN, HLD, 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 Per [place] report, patient "choked" six times in the past month while eating. He is on a pureed diet with allowances for a mechanical soft diet. Patient became hypotensive and not responded to IV bolus and was transferred to ICU. DUring ICU stay BP improved and did not require pressors for BP support. He is on medical martinez - clinically stable Discussed with Nursing at [facility] - he will not allow feeding tube, so will try PO cautiously. Patient with new onset A fib with RVR while on medical martinez -- transferred to telemetry for monitor and rate control # tachyxcardia / a fib burst of a fib with RVR on tele -less arrhythmia - tolerating Metolprolol -- 100 bid started on xarelto 01/02/19 Cardio consult appreciated continue telemetry to monitor rate correct lytes K>4.2 Mag >2.0 #Dysphagia toleratnig feeds aspitration precautions Chext xray reviewed and neg for aspiration , c/w atelectasis not febrile / no Leukocytes / no cough # Hypokalemia replace lytes - keep K >4 / Mag >2 #CVA Lt sided weakness PT # Neuropathy / chronic pain LE continue home meds #Hypotension now resolved s/p multiple IV boluses NS- transfered to ICU but did not require pressors currently in medical martinez with stable bp continue to monitor Problem List - Problems (1) Dysphagia Code(s): R13.10 - DYSPHAGIA, UNSPECIFIED Qualifiers: Dysphagia type: unspecified Qualified Code(s): R13.10 - Dysphagia, unspecified (2) Dementia Code(s): F03.90 - UNSPECIFIED DEMENTIA WITHOUT BEHAVIORAL DISTURBANCE (3) HTN (hypertension) Code(s): I10 - ESSENTIAL (PRIMARY) HYPERTENSION (4) CVA, old, alterations of sensations Code(s): I69.398 - OTHER SEQUELAE OF CEREBRAL INFARCTION; R20.9 - UNSPECIFIED DISTURBANCES OF SKIN SENSATION (5) Atrial fibrillation Code(s): I48.91 - UNSPECIFIED ATRIAL FIBRILLATION
[2019-01-07] MEDS: RIVAROXABAN 20 MG TABLET PO SCH (17:10)
[2019-01-08 01:57] VITALS: TEMP 98
[2019-01-08] MEDS: IPRATROPIUM BR 0.02% 0.5 MG/2.5 ML VIAL.NEB. NEB SCH ×2 (07:25→11:27)
[2019-01-08 08:26] LABS: BLOOD UREA NITROGEN 9.1 mg/dL (7-18); CREATININE 0.6 mg/dL (0.55-1.3); POTASSIUM 3.8 mmol/L (3.5-5.1)
[2019-01-08 08:27] LABS: CALCIUM 8.7 mg/dL (8.5-10.1)
--- NOTE | 2019-01-08 10:03 | PN ---
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, Physician Chief Complaint: choking History of Present Illness: denies sob or choking ("it's gotten much better") no cp no palpit, leg swelling thinks he's been in hosp for 2 months - Current Medication List Current Medications: Active Medications Amoxicillin/Clavulanate Potassium (Augmentin 250 Mg/5 Ml Oral Suspension -) 500 mg PO TIDCM [facility] Last Admin: 01/07/19 17:10 Dose: 500 mg Sodium Chloride (Normal Saline -) 1,000 mls @ 75 mls/hr IV ASDIR [facility] Last Admin: 01/07/19 11:15 Dose: 75 mls/hr Ipratropium [place] (Atrovent 0.02% Nebulizer -) 1 amp NEB RQID [facility] Last Admin: 01/08/19 07:25 Dose: 1 amp Magnesium Chloride (Slow-Mag -) 64 mg PO DAILY [facility] Last Admin: 01/07/19 09:04 Dose: 64 mg Metoprolol Tartrate (Lopressor Injection -) 5 mg IVPUSH Q4H PRN PRN Reason: TACHYCARDIA Last Admin: 01/06/19 13:21 Dose: 5 mg Metoprolol Tartrate (Lopressor -) 100 mg PO BID [facility] Last Admin: 01/07/19 21:46 Dose: 100 mg Rivaroxaban (Xarelto) 20 mg PO DAILY@1800 [facility] Last Admin: 01/07/19 17:10 Dose: 20 mg - Objective Vital Signs: Vital Signs Temperature 98.0 F 01/08/19 01:56 Pulse Rate 71 01/08/19 01:56 Respiratory Rate 20 01/08/19 01:56 Blood Pressure 141/68 01/08/19 01:56 O2 Sat by Pulse Oximetry (%) 97 01/07/19 21:00 Constitutional: Yes: Well Nourished, No Distress, Calm Cardiovascular: Yes: Regular Rate and Rhythm (soft sounds), Murmur (soft syst murmur LSB, no S2 split can be heard), S1, S2. No: JVD, Gallop Respiratory: Yes: Regular (soft sounds), CTA Bilaterally. No: Accessory Muscle Use, Rales, Wheezes Extremities: No: Cold Edema: No Neurological: Yes: Alert. No: Seizure Labs: CBC, BMP 01/07/19 06:10 01/08/19 07:03 INR, PTT INR 1.12 (0.83-1.09) H 12/28/18 15:21 Assessment/Plan echo 12/2018: nl lv, rv not seen, mild mr, mod tr, nl rvsp, mod as, mod ar ( reported AV gradients 40s/20s, SANIYA < 1) tele: NSR. 10 WCT (? NSVT vs AF with aberrancy) Afib with RVR - new diagnosis - in sr now, occ episodes of afib with rvr. cont lopressor 100 mg BID. - CHADSVasc 6 - now on xarelto moderate /AI: - no signs CHF during this admit - cardiac sounds soft, cannot evaluate for S2 split - outpt followup (d/w'd dr dangelo--rec repeat echo as outpt if + sx's or if it would change mgmt (dementia severity/course remains TBD, pt has declined invasive procedures) dysphagia, aspiration - manage per primary HTN - stable on bb wide complex tach, nonsustained: - possible NSVT run on tele, vs SVT with aberrancy - lytes stable, nl LVEF - no further w/u or tx needed--continue bb as doing CVA - cont statin, xarelto no further inpatient cardio w/u or tx needed
[2019-01-08] MEDS ORDERED: PT OWN MED DRAWER 7, Y5N ONE (10:04)
--- NOTE | 2019-01-08 10:54 | PN ---
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, Physician History of Present Illness: PULMONARY ALERT,FEELING BETTER,LESS DYSPNEIC - Current Medication List Current Medications: Active Medications Amoxicillin/Clavulanate Potassium (Augmentin 250 Mg/5 Ml Oral Suspension -) 500 mg PO TIDCM [facility] Last Admin: 01/07/19 17:10 Dose: 500 mg Sodium Chloride (Normal Saline -) 1,000 mls @ 75 mls/hr IV ASDIR [facility] Last Admin: 01/07/19 11:15 Dose: 75 mls/hr Ipratropium Halsey (Atrovent 0.02% Nebulizer -) 1 amp NEB RQID [facility] Last Admin: 01/08/19 07:25 Dose: 1 amp Magnesium Chloride (Slow-Mag -) 64 mg PO DAILY [facility] Last Admin: 01/07/19 09:04 Dose: 64 mg Metoprolol Tartrate (Lopressor Injection -) 5 mg IVPUSH Q4H PRN PRN Reason: TACHYCARDIA Last Admin: 01/06/19 13:21 Dose: 5 mg Metoprolol Tartrate (Lopressor -) 100 mg PO BID [facility] Last Admin: 01/07/19 21:46 Dose: 100 mg Rivaroxaban (Xarelto) 20 mg PO DAILY@1800 [facility] Last Admin: 01/07/19 17:10 Dose: 20 mg - Objective Vital Signs: Vital Signs Temperature 98.0 F 01/08/19 01:56 Pulse Rate 71 01/08/19 01:56 Respiratory Rate 20 01/08/19 01:56 Blood Pressure 141/68 01/08/19 01:56 O2 Sat by Pulse Oximetry (%) 97 01/07/19 21:00 Constitutional: Yes: Well Nourished, Calm Eyes: Yes: WNL HENT: Yes: WNL Neck: Yes: WNL Cardiovascular: Yes: Pulse Irregular, S1, S2 Respiratory: Yes: Diminished, Rhonchi (FEW SCATTERED RHONCHI) Gastrointestinal: Yes: Normal Bowel Sounds, Soft Extremities: Yes: WNL Edema: No Labs: CBC, BMP 01/08/19 07:03 Problem List - Problems (1) Aspiration pneumonia Code(s): J69.0 - PNEUMONITIS DUE TO INHALATION OF FOOD AND VOMIT (2) Atrial fibrillation Code(s): I48.91 - UNSPECIFIED ATRIAL FIBRILLATION (3) CVA, old, alterations of sensations Code(s): I69.398 - OTHER SEQUELAE OF CEREBRAL INFARCTION; R20.9 - UNSPECIFIED DISTURBANCES OF SKIN SENSATION (4) Dementia Code(s): F03.90 - UNSPECIFIED DEMENTIA WITHOUT BEHAVIORAL DISTURBANCE (5) Dysphagia Code(s): R13.10 - DYSPHAGIA, UNSPECIFIED Qualifiers: Dysphagia type: unspecified Qualified Code(s): R13.10 - Dysphagia, unspecified (6) HTN (hypertension) Code(s): I10 - ESSENTIAL (PRIMARY) HYPERTENSION (7) Sepsis Code(s): A41.9 - SEPSIS, UNSPECIFIED ORGANISM Assessment/Plan A/P New Onset Atrial Fibrillation with RVR Pneumonia likely Aspiration improving Sepsis improving HTN Dementia - rate control - anticoagulation per cardiology - antibiotics - aspiration precautions - PO as tolerated - DVT prophylaxis DR COLLAZO
[2019-01-08] MEDS: METOPROLOL TARTRATE 50 MG TABLET (FP) PO SCH (11:12)
[2019-01-08] MEDS: MAGNESIUM CL 64 MG TABLET.SA PO SCH (11:12)
[2019-01-08] MEDS ORDERED: POTASSIUM CHLORIDE TABS 20 MEQ TABLET.ER (FP) PO ONE (11:31)
--- NOTE | 2019-01-08 11:37 | DS ---
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 Per NE report, patient "choked" six times in the past month while eating. He is on a pureed diet with allowances for a mechanical soft diet. Patient became hypotensive and not responded to IV bolus and was transferred to ICU. DUring ICU stay BP improved and did not require pressors for BP support. He was transferred to [facility] - remained clinically stable. During hospital stay found to have tachycardia - EKG revealed new onset A fib with RVR. He was transfered to telemetry unit, started on NOAC and BB for rate control. Lytes corrected and BB adjusted to appropriate rate control. Patient was placed on dysphagia diet and will require assistance with feeding once back at [facility]. Swallow eval and recommendations will need to be reviewed once transferred back to [facility] # tachyxcardia / a fib tolerating Metolprolol -- 100 bid with less arrhythmia started on xarelto 01/02/19 Cardio consult appreciated correct lytes K>4.2 Mag >2.0 #Dysphagia toleratnig feeds -- review recommendations from Swallow eval dysphagia diet with aspitration precautions Chext xray reviewed and neg for aspiration , c/w atelectasis not febrile / no Leukocytes / no cough # Hypokalemia replace lytes - keep K >4 / Mag >2 #CVA Lt sided weakness PT # Neuropathy / chronic pain LE continue home meds Constitutional: Yes: Well Nourished, No Distress, Anxious Eyes: Yes: WNL, Conjunctiva Clear, EOM Intact HENT: Yes: Atraumatic, Normocephalic Neck: Yes: Supple, Trachea Midline Cardiovascular: Yes: Regular Rate and Rhythm, Murmur Respiratory: Yes: Regular, CTA Bilaterally, Diminished (at bases) Gastrointestinal: Yes: Normal Bowel Sounds, Soft ...Rectal Exam: Yes: Deferred Renal/: Yes: WNL Breast(s): Yes: WNL Musculoskeletal: Yes: WNL Extremities: Yes: WNL Edema: No Peripheral Pulses WNL: Yes Integumentary: Yes: WNL Neurological: Yes: Alert, Oriented, Confusion, Pre-Existing Deficit, Unsteady Gait (known to have neuropathy and residual weakness from CVA), Weakness Psychiatric: Yes: Alert, Oriented Labs: CBC, BMP 01/07/19 06:10 01/08/19 07:03 Discharge Summary Reason For Visit: DYSPHAGIA Current Active Problems Aspiration pneumonia (Acute) Atrial fibrillation (Acute) CVA, old, alterations of sensations (Acute) Dementia (Acute) Dysphagia (Acute) HTN (hypertension) (Acute) Sepsis (Acute) Condition: Improved - Instructions Disposition: [facility] F[facility] - Home Medications Comprehensive Discharge Medication List: Ambulatory Orders Aripiprazole [Abilify] 2.5 mg PO BID 12/28/18 Ascorbic Acid [Vitamin C] 500 mg PO BID 12/28/18 Baclofen 10 mg PO BID 12/28/18 Xarelto 20 mg q day Cyanocobalamin [Vitamin B12 -] 1,000 mcg PO DAILY 12/28/18 Docusate Sodium [Colace] 200 mg PO BID 12/28/18 Multivitamins [Tab-A-Vit -] 1 tab PO DAILY 12/28/18 Simvastatin [Zocor -] 20 mg PO HS 12/28/18 Travoprost [Travatan Z] 5 ml OU HS 12/28/18
[2019-01-08] MEDS: AMOX TR/POTASSIUM CLAVULANATE 250 MG/5 ML BOTTLE PO SCH (11:41)
--- NOTE | 2019-01-08 13:10 | PN ---
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, CLINICAL SUPPORT SPECIALIST - Note 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: Selected Entries 01/07/19 01/07/19 01/07/19 02:00 06:11 08:13 Supper Temperature 99 F 99.3 F 97.9 F 01/07/19 01/07/19 01/07/19 14:00 17:00 22:00 Supper 50% Temperature 97.6 F 97.8 F 98.4 F 01/08/19 01:56 Supper Temperature 98.0 F Laboratory Tests 01/07/19 06:10 WBC 7.4 Eating more, tolerating well. For d/c back to [place]. Suggest f/u Speech pathology at [facility] for staff education regarding compensatory swallowing techniques.
[2019-01-08 14:43] VITALS: BP 120/57; PULSE 64
== END 2019-01-08 15:38 | DRG 177 ==
LOC: JER 14:13 → JERBED 19:16 → J5S 20:07 → OBSVTOIN 23:22 → JICU 12-29 13:07 → J7W 12-30 16:09 → J4W 01-03 15:13
PROVIDERS: ADMIT Family Medicine; ATTEND Family Medicine
PROC: 05HM33Z Insertion of Infusion Device into Right Internal Jugular Vein, Percutaneous Approach (ICD-10-PCS; principal; 2018-12-29)
DX: J69.0 Pneumonitis due to inhalation of food and vomit (principal); A41.89 Other specified sepsis; R65.21 Severe sepsis with septic shock; G93.41 Metabolic encephalopathy; G81.91 Hemiplegia, unspecified affecting right dominant side; I47.1 Supraventricular tachycardia; R13.10 Dysphagia, unspecified; E78.5 Hyperlipidemia, unspecified; I10 Essential (primary) hypertension; I73.9 Peripheral vascular disease, unspecified; G31.83 Neurocognitive disorder with Lewy bodies; F02.80 Dementia in other diseases classified elsewhere, unspecified severity, without behavioral disturbance, psychotic disturbance, mood disturbance, and anxiety; F32.9 Major depressive disorder, single episode, unspecified; R50.9 Fever, unspecified; I95.9 Hypotension, unspecified; G62.9 Polyneuropathy, unspecified; H40.9 Unspecified glaucoma; G89.29 Other chronic pain; R00.0 Tachycardia, unspecified; E87.6 Hypokalemia; I48.91 Unspecified atrial fibrillation
CPT/HCPCS: 36415; 70450-TC; 71045-TC-FY; 74230-TC-FY; 80048; 80053; 81003; 83605; 83735; 84443; 84484; 85025; 85027; 85610; 85730; 87040; 87086; 87186; 92611-GN; 93005; 93010; 93306-TC; 94640; 97116-GP; 97161-GP; 99284-25; G0378; G0480; J0131; J7030